=== PATIENT | male | born 1940 | race Caucasian/White ===

== ENCOUNTER 2018-01-13 10:07 | Outpatient (CLI) | payer MEDICARE ==
--- NOTE | 2018-01-13 11:18 | RAD ---
PA AND LATERAL VIEWS CHEST: Date: 01/13/18 HISTORY: Dyspnea. FINDINGS: Comparison made with exam dated 07/05/17. The heart size is enlarged. Lungs are expanded with stable chronic changes. No lobar consolidation, p neumothoraces, or pleural effusions are seen. No evidence of pulmonary edema is identified. No acute osseous abnormalities are noted. IMPRESSION: Stable exam. No acute process. POS: [facility]
== END 2018-01-13 10:08 | disposition home or self-care (01) ==
LOC: RAD 10:07
PROVIDERS: ATTEND Internal Medicine Critical Care Medicine
DX: R06.00 Dyspnea, unspecified (principal); J84.112 Idiopathic pulmonary fibrosis
CPT/HCPCS: 71046

== ENCOUNTER 2018-05-25 12:55 | Outpatient (CLI) | payer MEDICARE | END 2018-05-25 12:56 | disposition home or self-care (01) | LOC: CP 12:55 | PROVIDERS: ATTEND Internal Medicine Critical Care Medicine | DX: J84.112 Idiopathic pulmonary fibrosis (principal) | CPT/HCPCS: 71046; 94060; 94727; 94729 ==

== ENCOUNTER 2018-05-25 14:25 | Outpatient (CLI) | payer MEDICARE ==
--- NOTE | 2018-05-25 15:43 | RAD ---
RADIOGRAPH CHEST 2 VIEWS: Date: 05/25/18 Time: 2:37 p.m. HISTORY: 78-year-old male with dyspnea. COMPARISON: 01/13/18. FINDINGS: Low lung volumes and diffuse, chronic appearing interstitial infiltrates. No pleural effusion. No pne umothorax. No interval change. IMPRESSION: 1. Evidence for pulmonary fibrosis. 2. No interval change since 01/13/18. EULALIA [] POS: [facility]
== END 2018-05-25 14:26 | disposition home or self-care (01) ==
LOC: RAD 14:25
PROVIDERS: ATTEND Internal Medicine Critical Care Medicine
DX: J84.112 Idiopathic pulmonary fibrosis (principal); R06.00 Dyspnea, unspecified
CPT/HCPCS: 71046

== ENCOUNTER 2018-07-24 10:48 | Emergency (ER) | payer MEDICARE ==
[2018-07-24] MEDS ORDERED: Proparacaine 0.5% Opth 15 ML BOT ONE (11:06)
== END 2018-07-24 12:38 | disposition home or self-care (01) ==
LOC: ERS 10:48
DX: J32.9 Chronic sinusitis, unspecified (principal); H61.21 Impacted cerumen, right ear; I10 Essential (primary) hypertension; I48.91 Unspecified atrial fibrillation; E11.9 Type 2 diabetes mellitus without complications; Z79.82 Long term (current) use of aspirin; Z79.899 Other long term (current) drug therapy; Z79.84 Long term (current) use of oral hypoglycemic drugs
CPT/HCPCS: 99283

== ENCOUNTER 2018-10-09 09:05 | Outpatient (CLI) | payer MEDICARE ==
--- NOTE | 2018-10-09 11:15 | RAD ---
FRONTAL ABDOMEN AND PELVIS RADIOGRAPHS UPRIGHT AND SUPINE: 10/09/2018 HISTORY: Intermittent abdominal pain. Burning sensation. Right lower quadrant pain. COMPARISON: None. FINDINGS: The imaged lung parenchyma is markedly abnormal, with coarse, nonspecific, increased interstitial den sity. Upright imaging demonstrates free intraperitoneal air. There is significant stool overlying t he right colon. There is multilevel degenerative change seen within the lumbar spine. The bowel gas pattern appears nonobstructed. There are multiple punctate calcifications within the upper abdomen bilaterally, right greater than l eft, suggesting bilateral renal calculi, better evaluated on a 08/21/2018 CT. IMPRESSION: Interstitial disease within both lung bases. No free intraperitoneal air or evidence of bowel obstru ction. POS: [facility]
--- NOTE | 2018-10-09 11:17 | RAD ---
THREE VIEWS OF THE LEFT RIBS: DATE: 10/09/2018. COMPARISON: None. HISTORY: Lower rib pain and intercostal pain. FINDINGS: The lung parenchyma demonstrates coarse linear interstitial density with probable bronchiectatic thapa ge within the left base. There is degenerative change involving the left acromioclavicular joint. There is atherosclerotic calcification of the aortic arch and the imaged abdominal aorta. No displac ed rib fracture seen. IMPRESSION: Chronic findings as detailed above. No displaced left-sided rib fracture noted. If symptoms persist , CT may be beneficial. POS: [facility]
--- NOTE | 2018-10-09 11:21 | RAD ---
THREE VIEWS OF THE RIGHT RIBS: DATE: 10/09/2018. COMPARISON: None. HISTORY: Lower rib pain, intercostal pain. FINDINGS: There is atherosclerotic calcification of the aortic arch. There is increased linear interstitial de nsity within the perihilar regions and lung bases. There is degenerative change involving the right acromioclavicular joint. Three-view examination of right ribs demonstrates no acute osseous abnormality. IMPRESSION: Chronic findings as detailed above. No acute osseous abnormality. If symptoms persist, CT may be be neficial. IMPRESSION: No acute osseous abnormality. POS: [facility]
--- NOTE | 2018-10-09 11:36 | RAD ---
FRONTAL AND LATERAL IMAGING OF THE THORACOLUMBAR JUNCTION: 10/09/2018 HISTORY: Pain. FINDINGS: Frontal and lateral radiographs of the spine, centered at the thoracolumbar junction, are provided. The upper thoracic spine and the lower lumbar spine are not fully imaged on this exam. The imaged ve rtebral bodies demonstrate no acute fracture. No significant anterolisthesis or retrolisthesis. There is prominent degenerative change noted at L2-L3 with disk space narrowing, degenerative endplat e change, and anterior osteophyte formation. IMPRESSION: Incompletely assessed lumbar spine degenerative change. No acute osseous abnormality. Upper thoraci c spine and lower lumbar spine not imaged on this examination. POS: [facility]
== END 2018-10-09 09:06 | disposition home or self-care (01) ==
LOC: BICRAD 09:05
PROVIDERS: ATTEND Internal Medicine
DX: R10.84 Generalized abdominal pain (principal); R07.82 Intercostal pain; M54.9 Dorsalgia, unspecified; M19.012 Primary osteoarthritis, left shoulder; I70.0 Atherosclerosis of aorta; J84.9 Interstitial pulmonary disease, unspecified
CPT/HCPCS: 72080; 74019

== ENCOUNTER 2018-10-09 10:39 | Outpatient (CLI) | payer MEDICARE ==
--- NOTE | 2018-10-09 14:55 | ULT ---
ABDOMINAL ULTRASOUND: 10/09/2018 HISTORY: Abdominal pulling sensation. Abdominal discomfort. Epigastric and lower abdominal pain with constip ation. COMPARISON: None. TECHNIQUE: Multiplanar -scale sonographic imaging of the abdomen obtained. FINDINGS: The imaged aorta and IVC appear grossly unremarkable but are poorly assessed secondary to body habitu s and bowel gas. The pancreas is poorly assessed on this exam as well. The hepatic parenchyma is he terogeneous and echogenic, suggesting possible hepatocellular disease, such as steatosis. There is a granuloma in the left lobe of the liver. No intrahepatic biliary dilatation is seen. The stock handler floorperson reports a negative Witt sign. There is questionable small volume gallbladder sludg e. No gallstones, pericholecystic fluid, or gallbladder wall thickening. The common bile duct measures 6-7 mm, upper limits of normal. Correlation with LFTs suggested. The right kidney measures 11.9 cm in craniocaudal dimension, and the left kidney measures 13 cm in cr aniocaudal dimension. No renal mass or hydronephrosis is noted on either side. Possible renal calcu wendy noted on the left, measuring up to 9 mm. The spleen measures up to 8.6 cm, within normal limits. IMPRESSION: 1. Technically limited examination, demonstrating no evidence or cholelithiasis or cholecystitis. P robable gallbladder sludge. Common bile duct is at the upper limits of normal in size. 2. Hepatic parenchyma is heterogeneous and echogenic, which may signify steatosis. 3. Question left renal calculus. POS: [facility]
== END 2018-10-09 10:40 | disposition home or self-care (01) ==
LOC: SCSULT 10:39
PROVIDERS: ATTEND Internal Medicine
DX: R10.84 Generalized abdominal pain (principal); R93.2 Abnormal findings on diagnostic imaging of liver and biliary tract
CPT/HCPCS: 36415; 72080; 74019; 76700; 80053; 81001; 82043; 82150; 83690; 85025; 87086

== ENCOUNTER 2018-11-24 14:05 | Outpatient (CLI) | payer MEDICARE ==
--- NOTE | 2018-11-24 15:08 | RAD ---
CHEST TWO VIEWS: HISTORY: Dyspnea. COMPARISON: 05/25/2018 FINDINGS: Atherosclerosis of the aorta. Persistent cardiomegaly. Diffuse interstitial and alveolar opacities of the lung parenchyma. The lungs are hyperinflated. No pneumothorax or osseous abnormalities. IMPRESSION: Chronic changes in the lung parenchyma are suspected. Superimposed infiltrate cannot be excluded. POS: [facility]
== END 2018-11-24 14:06 | disposition home or self-care (01) ==
LOC: RAD 14:05
PROVIDERS: ATTEND Internal Medicine Critical Care Medicine
DX: R06.00 Dyspnea, unspecified (principal)
CPT/HCPCS: 71046

== ENCOUNTER 2018-12-08 07:01 | Day surgery (SDC) | payer MEDICARE ==
[2018-12-07 14:26] VITALS: BMI 25.9
[2018-12-08 08:17] LABS: #Basophils 0.1 thou/uL (0.0-0.2); #Eosinphils 0.2 thou/uL (0.0-0.7); #Lymphocytes 1.4 thou/uL (1.20-3.40); #Monocytes 0.9 thou/uL (0.11-0.59); #Neutrophils 9.8 thou/uL (1.40-6.50); %Basophils 0.4 % (0.0-1.0); %Eosinophils 1.9 % (0.0-10.0); %Lymphocytes 11.3 % (21.0-51.0); %Neutrophils 79.4 % (42.0-75.0); Hemoglobin 15.9 g/dL (14.0-18.0); Mean Corpuscular HGB CONC 31.7 g/dL (32.0-36.0); Mean Corpuscular Hemoglobin 30.4 pg (27.0-31.0); Mean Corpuscular Volume 95.8 fL (78.0-98.0); Mean Platelet Volume 8.6 fL (7.4-10.4); Platelet Count 120 thou/uL (130-400); Red Blood Cell (RBC) Count 5.23 mill/uL (4.70-6.10); White Blood Cell (WBC) Count 12.3 thou/uL (4.8-10.8)
[2018-12-08 08:24] LABS: INR-International Normal Ratio 1.4
[2018-12-08 08:36] LABS: Anion Gap 14 mmol/L (10-20); BUN (Urea Nitrogen) 15 mg/dL (8.4-25.7); Calc. Creatinine Clearance 86 mL/min (70-130); Calcium 8.9 mg/dL (7.8-10.44); Carbon Dioxide 25 mmol/L (23-31); Chloride 105 mmol/L (98-107); Estimated GFR-MDRD Greater than 90; Glucose 169 mg/dL (83-110); Potassium 3.9 mmol/L (3.5-5.1); Sodium 140 mmol/L (136-145)
[2018-12-08] MEDS ORDERED: KETAMINE 100 MG/ML (5ML VIAL) ONE (08:41)
[2018-12-08] MEDS ORDERED: PROPOFOL 40 ML ONE (08:42)
[2018-12-08] MEDS ORDERED: PROPOFOL 200 MG/20 ML VIAL ONE (16:36)
--- NOTE | 2018-12-08 16:53 | ECHO ---
TRANSESOPHAGEAL ECHOCARDIOGRAM: DATE OF PROCEDURE: 12/08/18 INDICATION: 78-year-old gentleman with paroxysmal atrial fibrillation and Watchman device. DESCRIPTION OF PROCEDURE: The patient was taken to the PACU. The patient was sedated by anesthesiology. A transesophageal probe was placed in the distal esophagus and stomach. Echocardiographic images were obtained. The transesophageal probe was removed. FINDINGS: 1. Normal left ventricular systolic function. 2. Biatrial enlargement. 3. The right ventricle is enlarged. 4. Aneurysm of the interatrial septum. 5. Moderate tricuspid regurgitation. 6. Mild mitral regurgitation. 7. Mild aortic regurgitation. 8. Watchman device is well positioned with a trivial less than 1.0 mm leak noted around the device, with a large amount of clot behind the device. 9. Atherosclerotic debris in the descending aorta. IMPRESSION: Watchman device well positioned with a trivial leak and a large amount of clot behind the device.
--- NOTE | 2018-12-08 21:15 | EKG ---
Test Reason : PREOP Blood Pressure : / mmHG Vent. Rate : 072 BPM Atrial Rate : 072 BPM P-R Int : 208 ms QRS Dur : 084 ms QT Int : 390 ms P-R-T Axes : 056 106 058 degrees QTc Int : 427 ms Normal sinus rhythm with sinus arrhythmia Rightward axis Borderline ECG When compared with ECG of 04-JUN-2017 00:33, Sinus rhythm has replaced Junctional rhythm Vent. rate has decreased BY 47 BPM QRS axis Shifted right Confirmed by Humberto YORK ([id number]) on 12/08/2018 9:15:15 PM Referred By: RAEANN Confirmed By:Humberto YORK
== END 2018-12-08 11:00 | disposition home or self-care (01) ==
LOC: CCL 07:01
PROVIDERS: ATTEND Internal Medicine Cardiovascular Disease
PROC: B24BZZ4 Ultrasonography of Heart with Aorta, Transesophageal (ICD-10-PCS; principal; 2018-12-08)
DX: I48.0 Paroxysmal atrial fibrillation (principal); I08.3 Combined rheumatic disorders of mitral, aortic and tricuspid valves; I70.0 Atherosclerosis of aorta; I48.1 Persistent atrial fibrillation; I10 Essential (primary) hypertension; I25.10 Atherosclerotic heart disease of native coronary artery without angina pectoris; E11.9 Type 2 diabetes mellitus without complications; Z79.52 Long term (current) use of systemic steroids; Z79.82 Long term (current) use of aspirin; Z79.01 Long term (current) use of anticoagulants; Z79.84 Long term (current) use of oral hypoglycemic drugs; Z79.899 Other long term (current) drug therapy; Z91.041 Radiographic dye allergy status; Z95.818 Presence of other cardiac implants and grafts
CPT/HCPCS: 80048; 85025; 85610; 85730; 93005; 93010; 93312; J2704

== ENCOUNTER 2019-03-26 10:03 | Day surgery (SDC) | payer MEDICARE ==
[2019-03-23 16:19] VITALS: BMI 26.1
[2019-03-26 10:38] LABS: #Eosinphils 0.1 thou/uL (0.0-0.7); #Lymphocytes 1.5 thou/uL (1.20-3.40); #Monocytes 0.7 thou/uL (0.11-0.59); #Neutrophils 12.2 thou/uL (1.40-6.50); %Basophils 0.1 % (0.0-1.0); %Eosinophils 0.5 % (0.0-10.0); %Lymphocytes 10.1 % (21.0-51.0); %Monocytes 4.9 % (0.0-10.0); %Neutrophils 84.4 % (42.0-75.0); Mean Corpuscular HGB CONC 32.5 g/dL (32.0-36.0); Mean Corpuscular Hemoglobin 31.5 pg (27.0-31.0); Mean Corpuscular Volume 96.9 fL (78.0-98.0); Mean Platelet Volume 8.9 fL (7.4-10.4); Platelet Count 151 thou/uL (130-400); RBC Distribution Width 12.9 % (11.5-14.5); Red Blood Cell (RBC) Count 6.05 mill/uL (4.70-6.10); White Blood Cell (WBC) Count 14.5 thou/uL (4.8-10.8)
[2019-03-26 10:42] LABS: INR-International Normal Ratio 0.9; Prothrombin Time 12.2 SEC (12.0-14.7)
[2019-03-26 10:43] LABS: PTT 19.7 SEC (22.9-36.1)
[2019-03-26 11:18] LABS: Anion Gap 15 mmol/L (10-20); BUN (Urea Nitrogen) 22 mg/dL (8.4-25.7); Calc. Creatinine Clearance 62 mL/min (70-130); Calcium 10.4 mg/dL (7.8-10.44); Carbon Dioxide 26 mmol/L (23-31); Chloride 100 mmol/L (98-107); Estimated GFR-MDRD 67; Glucose 359 mg/dL (83-110); Potassium 4.3 mmol/L (3.5-5.1); Sodium 137 mmol/L (136-145)
[2019-03-26] MEDS ORDERED: PROPOFOL 40 ML ONE (13:18)
--- NOTE | 2019-03-27 09:51 | ECHO ---
CARDIOLOGY PROCEDURE NOTE: Date: 03/26/19 PROCEDURE: Transesophageal echocardiogram. REASON FOR PROCEDURE: Mr. Nicholas is a 79-year-old gentleman with prior ablation and redo ablation, including isolation of left atrial appendage. Comorbidities include idiopathic pulmonary hypertension/fibrosis, Type 2 diab etes, hypertension. Status post Watchman device placement November 2018 with residual leak on 6 weeks post REBECCA. Is here for re-evaluation. Is on aspirin and Plavix. PROCEDURE DETAILS: The patient received propofol by anesthesia specialist. After adequate level of sedation achieved, th e standard transesophageal echocardiogram probe was placed into the esophagus without difficulty. The patient tolerated the procedure well. No complications noted. RESULTS: Left atrium normal in size, 3.6 cm in horizontal diameter. Left atrial appendage is well visualized a nd adequately seated Watchman device is in place. Behind the device, significant clot burden is seen, but still some echo lucency is observed. Different angle interrogation were able to tell us of about a 2-4 mm leak is still persisting and maintaining flow to the area behind the device at site of left atrial appendage. 4/4 pulmonary veins were well visualized, without stenosis. Mitral valve has trace mitral regurgitation only. Left ventricular systolic function preserved. LV size normal. Intra-atria l and intraventricular septum is free of defect. Trivial pericardial effusion seen on the right-sided chambers, mildly enlarged and RV systolic function slightly reduced. No significant tricuspid regurg itation seen. Pulmonic valve and aortic valve nonregurgitant or stenosed. Visualized portions of asce nding and descending aorta without aneurysm or dissection. Descending aorta has mild atheroma noted. No dissection or aneurysm seen. CONCLUSION: 1. Adequately seated Watchman device, but with residual 2-4 mm leak present in the annular aspect of the device causing some echo lucency in the left atrial appendage. 2. Normal left atrial size. 3. No significant valvular heart disease. 4. Normal left ventricular systolic function. 5. Mild RV dilation and RV systolic dysfunction noted. PLAN: Continue aspirin and Plavix. Will evaluate with Dr. Vidal regarding need for coiling.
== END 2019-03-26 15:03 | disposition home or self-care (01) ==
LOC: CCL 10:03
PROVIDERS: ATTEND Internal Medicine Cardiovascular Disease
PROC: B245ZZ4 Ultrasonography of Left Heart, Transesophageal (ICD-10-PCS; principal; 2019-03-26)
DX: I48.1 Persistent atrial fibrillation (principal); I25.10 Atherosclerotic heart disease of native coronary artery without angina pectoris; E11.9 Type 2 diabetes mellitus without complications; I10 Essential (primary) hypertension; E78.5 Hyperlipidemia, unspecified; J84.112 Idiopathic pulmonary fibrosis; Z99.89 Dependence on other enabling machines and devices; Z95.818 Presence of other cardiac implants and grafts; Z79.01 Long term (current) use of anticoagulants; Z79.82 Long term (current) use of aspirin; Z79.84 Long term (current) use of oral hypoglycemic drugs; Z79.899 Other long term (current) drug therapy
CPT/HCPCS: 80048; 85025; 85610; 85730; 93005; 93010; 93312; J2704

== ENCOUNTER 2019-04-24 10:24 | Outpatient (CLI) | payer MEDICARE ==
--- NOTE | 2019-04-24 10:58 | RAD ---
XR Hip Rt 2-3 View History: [Unspecified osteoarthritis] Comparison: Radiograph 2016 Findings: Mild narrowing right hip joint. Small acetabular osteophyte formation. Obturator ring is intact. Moderate vascular calcifications. No acute fracture or malalignment. Mild enthesopathy at the greater trochanter. Impression: Moderate degenerative changes. No acute abnormality.
--- NOTE | 2019-04-24 10:59 | RAD ---
XR Hip Lt 2-3 View History: [Unspecified osteoarthritis] Comparison: None Findings: Mild degenerative narrowing left hip. Moderate acetabular osteophyte formation. Moderate va scular calcifications. Mild enthesopathy changes greater trochanter. Obturator ring is intact. Small phleboliths in the pelvis. Impression: Moderate degenerative change.
--- NOTE | 2019-04-24 12:34 | RAD ---
LUMBAR SPINE TWO VIEWS: 04/24/19 HISTORY: Unspecified osteoarthritis. COMPARISON: 08/08/14. FINDINGS: Extensive honeycombing and interstitial changes in the lower lung zones, nonspecific but possibly rel ated to extensive chronic interstitial lung disease. Evidence for bilateral renal calculi. Status po st laminectomy changes primarily at L3. Severe generalized disc osteophytosis with marked narrowing a t L2-L3 with some retrolisthesis of L3 on L4 and L4 on L5. Marked worsening of disc space narrowing a nd disc osteophytosis at L2-L3 compared to a prior 08/08/14 study. IMPRESSION: Status post laminectomy. Severe disc osteophytosis showing marked worsening at L2-L3 from old study. Other findings as above. POS: [facility]
== END 2019-04-24 10:25 | disposition home or self-care (01) ==
LOC: BICRAD 10:24
PROVIDERS: ATTEND Internal Medicine
DX: M47.816 Spondylosis without myelopathy or radiculopathy, lumbar region (principal); M16.0 Bilateral primary osteoarthritis of hip; M43.16 Spondylolisthesis, lumbar region; M48.061 Spinal stenosis, lumbar region without neurogenic claudication; N20.0 Calculus of kidney; M25.78 Osteophyte, vertebrae; Z98.890 Other specified postprocedural states
CPT/HCPCS: 72100

== ENCOUNTER 2019-07-09 06:03 | Day surgery (SDC) | payer MEDICARE ==
[2019-07-06 12:21] VITALS: BMI 26.6
[2019-07-09 07:02] LABS: #Eosinphils 0.1 thou/uL (0.0-0.7); #Lymphocytes 1.7 thou/uL (1.20-3.40); #Monocytes 1.1 thou/uL (0.11-0.59); #Neutrophils 11.2 thou/uL (1.40-6.50); %Basophils 0.3 % (0.0-1.0); %Eosinophils 0.9 % (0.0-10.0); %Lymphocytes 12.1 % (21.0-51.0); %Monocytes 7.7 % (0.0-10.0); Hemoglobin 15.1 g/dL (14.0-18.0); Mean Corpuscular HGB CONC 32.7 g/dL (32.0-36.0); Mean Corpuscular Hemoglobin 32.6 pg (27.0-31.0); Mean Corpuscular Volume 99.6 fL (78.0-98.0); Mean Platelet Volume 8.4 fL (7.4-10.4); Platelet Count 155 thou/uL (130-400); RBC Distribution Width 12.4 % (11.5-14.5); Red Blood Cell (RBC) Count 4.65 mill/uL (4.70-6.10); White Blood Cell (WBC) Count 14.2 thou/uL (4.8-10.8)
[2019-07-09 07:03] LABS: PTT 23.2 SEC (22.9-36.1); Prothrombin Time 12.9 SEC (12.0-14.7)
[2019-07-09 07:14] LABS: Anion Gap 12 mmol/L (10-20); BUN (Urea Nitrogen) 12 mg/dL (8.4-25.7); Calc. Creatinine Clearance 84 mL/min (70-130); Calcium 9.2 mg/dL (7.8-10.44); Carbon Dioxide 27 mmol/L (23-31); Chloride 102 mmol/L (98-107); Estimated GFR-MDRD Greater than 90; Glucose 85 mg/dL (83-110); Potassium 3.5 mmol/L (3.5-5.1); Sodium 137 mmol/L (136-145)
[2019-07-09] MEDS ORDERED: PROPOFOL 20 ML ONE (07:20)
--- NOTE | 2019-07-09 14:10 | ECHO ---
CARDIOLOGY PROCEDURE NOTE: Date: 07/09/19 PROCEDURE: Transesophageal echocardiogram. REFERRING PHYSICIAN: Dr. Tati Moulton and Dr. Edwin Vidal. REASON FOR PROCEDURE: Mr. Nicholas is a pleasant 79-year-old male with prior history of left atrial ablation for persistent atrial fibrillation. He underwent a Watchman procedure in September 2018 and a coiling procedure in 2018. He is here for a 3 month postprocedure check, still on aspirin and Plavix. PROCEDURE: The patient received propofol by an anesthesia specialist. After an adequate level of sedation was ac hieved, a standard transesophageal echocardiogram probe was passed into the esophagus without difficu lty. The patient tolerated the procedure well. No complications noted. RESULTS: Left atrium is mildly enlarged. Left atrial appendage is well visualized with appropriately seated Wa tchman device in place. Color flow interrogation, though, reveals a flow about 0.3-0.4 cm in diameter . There is also suboptimal opacification noted behind the left atrial appendage occluder device. 4 of 4 pulmonary veins were well visualized. Interatrial septum free of defect. Mitral valve, aortic valv e, and tricuspid valve have mild regurgitation. Aortic valve identified with mild sclerosis. Left rory tricular systolic function preserved. No pericardial effusion noted. Right-sided chambers normal in s ize. Visualized portions of ascending and descending aorta without aneurysm or dissection. Descending aorta with adherent atheroma noted. CONCLUSION: Residual leak causing suboptimal opacification behind the Watchman device. PLAN: Continue aspirin and Plavix, and consider recoiling. Will discuss with Dr. Vidal.
== END 2019-07-09 09:45 | disposition home or self-care (01) ==
LOC: CCL 06:03
PROVIDERS: ATTEND Internal Medicine Cardiovascular Disease
PROC: B246ZZ4 Ultrasonography of Right and Left Heart, Transesophageal (ICD-10-PCS; principal; 2019-07-09)
DX: I48.1 Persistent atrial fibrillation (principal); I08.3 Combined rheumatic disorders of mitral, aortic and tricuspid valves; I70.0 Atherosclerosis of aorta; I25.10 Atherosclerotic heart disease of native coronary artery without angina pectoris; E11.9 Type 2 diabetes mellitus without complications; I10 Essential (primary) hypertension; E78.5 Hyperlipidemia, unspecified; J84.112 Idiopathic pulmonary fibrosis; Z99.81 Dependence on supplemental oxygen; Z91.041 Radiographic dye allergy status; Z79.84 Long term (current) use of oral hypoglycemic drugs; Z79.02 Long term (current) use of antithrombotics/antiplatelets; Z79.82 Long term (current) use of aspirin; Z79.899 Other long term (current) drug therapy
CPT/HCPCS: 36415; 80048; 85025; 85610; 85730; 93005; 93010; 93312; J2704

== ENCOUNTER 2019-10-29 08:37 | Day surgery (SDC) | payer MEDICARE ==
[2019-10-26 11:25] VITALS: BMI 25.4
[2019-10-29 09:13] LABS: #Eosinphils 0.2 thou/uL (0.0-0.7); #Lymphocytes 1.7 thou/uL (1.20-3.40); #Monocytes 1.2 thou/uL (0.11-0.59); #Neutrophils 9.9 thou/uL (1.40-6.50); %Eosinophils 1.3 % (0.0-10.0); %Lymphocytes 13.3 % (21.0-51.0); %Monocytes 8.9 % (0.0-10.0); %Neutrophils 76.4 % (42.0-75.0); Hemoglobin 15.7 g/dL (14.0-18.0); Mean Corpuscular HGB CONC 32.9 g/dL (32.0-36.0); Mean Corpuscular Hemoglobin 32.8 pg (27.0-31.0); Mean Corpuscular Volume 99.6 fL (78.0-98.0); Mean Platelet Volume 8.6 fL (7.4-10.4); Platelet Count 152 thou/uL (130-400); RBC Distribution Width 12.6 % (11.5-14.5); Red Blood Cell (RBC) Count 4.79 mill/uL (4.70-6.10)
[2019-10-29 09:16] LABS: INR-International Normal Ratio 0.9; Prothrombin Time 12.2 SEC (12.0-14.7)
[2019-10-29 09:17] LABS: PTT 22.6 SEC (22.9-36.1)
[2019-10-29 09:27] LABS: Anion Gap 12 mmol/L (10-20); BUN (Urea Nitrogen) 13 mg/dL (8.4-25.7); Calc. Creatinine Clearance 78 mL/min (70-130); Calcium 8.7 mg/dL (7.8-10.44); Carbon Dioxide 29 mmol/L (23-31); Chloride 101 mmol/L (98-107); Estimated GFR-MDRD Greater than 90; Glucose 212 mg/dL (83-110); Potassium 3.8 mmol/L (3.5-5.1); Sodium 138 mmol/L (136-145)
[2019-10-29] MEDS ORDERED: PHENYLEPHRINE-NS 100 MCG/ML 10 ML SYRINGE ONE (10:24)
[2019-10-29] MEDS ORDERED: PROPOFOL 200 MG/20 ML VIAL ONE (10:24)
[2019-10-29] MEDS ORDERED: Esmolol 100 MG/10 ML VIAL ONE (10:24)
[2019-10-29] MEDS ORDERED: PROPOFOL 40 ML ONE (11:08)
--- NOTE | 2019-10-30 20:08 | ECHO ---
DATE OF SERVICE: 10/29/19 REFERRING PHYSICIAN: Dr. Moulton REASON FOR PROCEDURE: The patient is a 79-year-old man with history of multiple ablations including isolation of left atria l appendage. He has had a Watchman device placed in September 2018; however, leak adjacent to the li ce prompted recoiling procedures, most recently in 04/18/19 and then again in July 2019. He is he re for REBECCA to check for adequate sealing of left atrial appendage. PROCEDURE: The patient received Propofol for deep sedation by Anesthesia specialist. After adequate level of sedation achieved, a standard transesophageal echocardiogram probe was passed into the esop hagus without difficulty. Patient tolerated the procedure well, no complications noted. RESULTS: Left atrium is upper normal in size about 3 cm in horizontal diameter. The left atrial appendage wel l visualized and adequately seated Watchman device in place. Still some residual echolucency noted behind the Watchman device. On color flow interrogation, there is significant flow seen by the annula r side of the device. The interatrial septum shows residual leak at the transseptal side. Four out o f four pulmonary veins were seen. Mild mitral regurgitation. Mild tricuspid regurgitation. The aort ic valve has trace to mild regurgitation. The pulmonary valve appears to be normal. Aortic valve and other valves are not stenosed. Three leaflet aortic valve is noted. Left ventricular systolic functio n is preserved. Right sided chambers are nondilated. No pericardial effusion seen. CONCLUSION: 1. Adequately seated but still not completely sealed Watchman device is noted. 2. Normal left ventricular systolic function. 3. Mild mitral, aortic and tricuspid regurgitation. PLAN: Continue current anticoagulation regimen and we will send CD to Dr. Vidal. Patient is on aspirin and Plavix at this time.
--- NOTE | 2019-11-12 16:35 | EKG ---
Test Reason : PREOP Blood Pressure : / mmHG Vent. Rate : 082 BPM Atrial Rate : 082 BPM P-R Int : 204 ms QRS Dur : 086 ms QT Int : 388 ms P-R-T Axes : 050 134 006 degrees QTc Int : 453 ms Normal sinus rhythm Right axis deviation Right ventricular hypertrophy with repolarization abnormality Abnormal ECG When compared with ECG of 09-JUL-2019 07:21, Nonspecific T wave abnormality, improved in Inferior leads Confirmed by JEANNIE NEWBY M.D. ([id number]) on 11/12/2019 4:34:27 PM Referred By: [facility] Confirmed By:JEANNIE NEWBY M.D.
== END 2019-10-29 15:40 | disposition home or self-care (01) ==
LOC: CCL 08:37
PROVIDERS: ATTEND Internal Medicine Cardiovascular Disease
PROC: B24BZZ4 Ultrasonography of Heart with Aorta, Transesophageal (ICD-10-PCS; principal; 2019-10-29)
DX: I48.19 Other persistent atrial fibrillation (principal); I08.3 Combined rheumatic disorders of mitral, aortic and tricuspid valves; I25.10 Atherosclerotic heart disease of native coronary artery without angina pectoris; E11.9 Type 2 diabetes mellitus without complications; E78.5 Hyperlipidemia, unspecified; I10 Essential (primary) hypertension; J84.112 Idiopathic pulmonary fibrosis; Z79.02 Long term (current) use of antithrombotics/antiplatelets; Z79.52 Long term (current) use of systemic steroids; Z79.82 Long term (current) use of aspirin; Z79.84 Long term (current) use of oral hypoglycemic drugs; Z79.899 Other long term (current) drug therapy; Z91.041 Radiographic dye allergy status; Z99.81 Dependence on supplemental oxygen; Z95.818 Presence of other cardiac implants and grafts; Z98.890 Other specified postprocedural states
CPT/HCPCS: 36415; 80048; 85025; 85610; 85730; 93005; 93010; 93312; J2704

== ENCOUNTER 2020-01-08 10:32 | Outpatient (CLI) | payer MEDICARE ==
--- NOTE | 2020-01-08 12:41 | RAD ---
PA AND LATERAL CHEST: HISTORY: Dyspnea. COMPARISON: 06/10/2017 and 11/24/2018 exams. FINDINGS: Heart size is enlarged. Chronic-appearing lung changes are seen. I do not see an obvious change sin ce the previous 11/24/2018 study. IMPRESSION: Severe chronic interstitial fibrotic lung change. POS: [facility]
== END 2020-01-08 10:33 | disposition home or self-care (01) ==
LOC: BICRAD 10:32
PROVIDERS: ATTEND Internal Medicine Critical Care Medicine
DX: R06.00 Dyspnea, unspecified (principal)
CPT/HCPCS: 71046

== ENCOUNTER 2020-01-23 07:06 | Day surgery (SDC) | payer MEDICARE ==
[2020-01-22 09:06] VITALS: BMI 25.5
[2020-01-23 08:06] LABS: #Eosinphils 0.2 thou/uL (0.0-0.7); #Lymphocytes 1.5 thou/uL (1.20-3.40); #Neutrophils 11.3 thou/uL (1.40-6.50); %Basophils 0.2 % (0.0-1.0); %Eosinophils 1.2 % (0.0-10.0); %Lymphocytes 10.7 % (21.0-51.0); %Monocytes 7.3 % (0.0-10.0); %Neutrophils 80.7 % (42.0-75.0); Hemoglobin 15.9 g/dL (14.0-18.0); Mean Corpuscular Hemoglobin 32.5 pg (27.0-31.0); Mean Corpuscular Volume 98.4 fL (78.0-98.0); Mean Platelet Volume 8.5 fL (7.4-10.4); Platelet Count 154 thou/uL (130-400); RBC Distribution Width 13.2 % (11.5-14.5)
[2020-01-23 08:18] LABS: INR-International Normal Ratio 0.9; Prothrombin Time 12.3 SEC (12.0-14.7)
[2020-01-23 08:19] LABS: PTT 22.8 SEC (22.9-36.1)
[2020-01-23 08:36] LABS: Anion Gap 13 mmol/L (10-20); BUN (Urea Nitrogen) 18 mg/dL (8.4-25.7); Calc. Creatinine Clearance 82 mL/min (70-130); Calcium 8.8 mg/dL (7.8-10.44); Carbon Dioxide 27 mmol/L (23-31); Chloride 104 mmol/L (98-107); Estimated GFR-MDRD Greater than 90; Glucose 188 mg/dL (83-110); Potassium 3.8 mmol/L (3.5-5.1); Sodium 140 mmol/L (136-145)
[2020-01-23] MEDS ORDERED: PROPOFOL 200 MG/20 ML VIAL ONE (10:10)
--- NOTE | 2020-01-24 08:29 | EKG ---
Test Reason : PREOP Blood Pressure : / mmHG Vent. Rate : 077 BPM Atrial Rate : 077 BPM P-R Int : 214 ms QRS Dur : 086 ms QT Int : 390 ms P-R-T Axes : 045 136 004 degrees QTc Int : 441 ms Sinus rhythm with 1st degree A-V block Right axis deviation Right ventricular hypertrophy Abnormal ECG When compared with ECG of 29-OCT-2019 08:53, No significant change was found Confirmed by DR. Margret WHITFIELD ([id number]) on 01/24/2020 8:28:42 AM Referred By: [facility] Confirmed By:DR. Margret WHITFIELD
--- NOTE | 2020-01-24 16:53 | ECHO ---
DATE OF PROCEDURE: 01/23/20 REFERRING PHYSICIAN: Dr. Edwin Vidal; Dr. Marcelo Moulton REASON FOR PROCEDURE: The patient is an 80-year-old gentleman with history of persistent atrial fibrillation with ablation and isolation of the left atrial appendage. He also underwent a Watchman device placement in September 2019 but leak prompted coiling in April 10, 2019 and also in November 2019. He is here for repeat REBECCA t o re-evaluate Watchman patency. PROCEDURE: The patient received Propofol by Anesthesia specialist. After adequate level of sedation achieved, a standard transesophageal echocardiogram probe was passed into the esophagus without diff iculty. Patient tolerated the procedure well, no complications noted. RESULTS: Left atrium is mildly enlarged about 4 cm in horizontal diameter. The left atrial appendage well vis ualized with adequately seated Watchman device in place. Posterior to the device in the left atrial a ppendage there is still suboptimal opacification seen suggestive of flow. Also color flow Doppler rev eals trace flow possibly through the annular surface of the device leaking to the appendage behind th e Watchman device. I cannot rule out also flow through the mesh work either. The interatrial septum has residual leak at the site of the transseptal puncture which is very restri ctive. Four out of four pulmonary veins are well visualized without stenosis. The mitral valve has t race regurgitation. The left ventricular systolic function appears to be normal. No pericardial effu roxy seen of significance. The right sided chamber is nondilated. Trace tricuspid regurgitation seen only. The aortic valve has three leaflets with trace regurgitation. No pulmonary regurgitation noted . The visualized portion of ascending and descending aorta without aneurysm or dissection. Adherent a theroma seen throughout the descending aorta. CONCLUSION: 1. Adequately seated but suboptimal sealed Watchman device in place. 2. Mild left atrial enlargement. 3. Normal left ventricular systolic function. 4. Trace mitral and aortic regurgitation only. 5. Residual restrictive flow through the interatrial septum at the site of transseptal puncture is s till visualized and of note not of significance. PLAN: We will send CD for review to [facility]. For now continue Plavix and we will follow up with the patient as an outpatient as well.
== END 2020-01-23 12:11 | disposition home or self-care (01) ==
LOC: CCL 07:06
PROVIDERS: ATTEND Internal Medicine Cardiovascular Disease
PROC: B24BZZ4 Ultrasonography of Heart with Aorta, Transesophageal (ICD-10-PCS; principal; 2020-01-23)
DX: I48.19 Other persistent atrial fibrillation (principal); I08.0 Rheumatic disorders of both mitral and aortic valves; Z91.041 Radiographic dye allergy status
CPT/HCPCS: 80048; 85025; 85610; 85730; 93005; 93010; 93312; J2704

== ENCOUNTER 2020-03-17 15:21 | Outpatient (CLI) | payer MEDICARE ==
--- NOTE | 2020-03-17 16:37 | RAD ---
THREE VIEWS LEFT HAND: Date: 03-17-2020 Provided Clinical History: Cellulitis FINDINGS: No evidence for fracture or other acute osseous abnormality. Alignment appears anatomic. Joint spaces appear preserved. Vascular calcifications are seen. No evidence for soft tissue gas. IMPRESSION: No evidence for an acute osseous abnormality. POS: [facility]
--- NOTE | 2020-03-17 16:38 | RAD ---
TWO VIEWS LEFT FOREARM: Date: 03-17-2020 Provided Clinical History: Cellulitis. FINDINGS: No evidence for fracture or other acute osseous abnormality. Alignment appears anatomic. Joint spaces appear preserved. Vascular calcification is noted. There is no evidence for soft tissue gas. IMPRESSION: No evidence for an acute osseous abnormality. POS: [facility]
--- NOTE | 2020-03-17 16:58 | RAD ---
LEFT ELBOW RADIOGRAPHS FOUR VIEWS: Date: 03-17-2020 Provided Clinical History: Cellulitis. FINDINGS: No evidence for fracture or other acute osseous abnormality. Alignment appears anatomic. Joint spaces appear preserved. No evidence for significant elbow joint capsular distention. Prominence of the sof t tissues at the posterior aspect of the elbow. No evidence for soft tissue gas. IMPRESSION: No evidence for an acute osseous abnormality. POS: [facility]
== END 2020-03-17 15:22 | disposition home or self-care (01) ==
LOC: BICRAD 15:21
PROVIDERS: ATTEND Internal Medicine
DX: L03.114 Cellulitis of left upper limb (principal)

== ENCOUNTER 2020-12-24 22:22 | Inpatient (IN) | payer MEDICARE ==
[2020-12-24 22:59] LABS: Hemoglobin 19.1 g/dL (14.0-18.0); Mean Corpuscular HGB CONC 30.4 g/dL (32.0-36.0); Mean Corpuscular Hemoglobin 31.2 pg (27.0-31.0); Mean Platelet Volume 10.6 fL (7.4-10.4); Platelet Count 78 thou/uL (130-400); RBC Distribution Width 15.3 % (11.5-14.5); Red Blood Cell (RBC) Count 6.11 mill/uL (4.70-6.10); White Blood Cell (WBC) Count 13.4 thou/uL (4.8-10.8)
[2020-12-24 23:10] LABS: #Lymphocytes 1.3 thou/uL (1.20-3.40); #Monocytes 0.7 thou/uL (0.11-0.59); #Neutrophils 11.3 thou/uL (1.40-6.50); %Basophils 0.3 % (0.0-1.0); %Eosinophils 0.2 % (0.0-10.0); %Lymphocytes 9.9 % (21.0-51.0); %Monocytes 4.9 % (0.0-10.0); %Neutrophils 84.6 % (42.0-75.0); Platelet Morphology Comment Appears Decreased
[2020-12-24 23:13] LABS: ALT (SGPT) 67 U/L (8-55); AST (SGOT) 65 U/L (5-34); Albumin 3.9 g/dL (3.4-4.8); Alkaline Phosphatase 324 U/L (40-110); Anion Gap 22 mmol/L (10-20); BUN (Urea Nitrogen) 32 mg/dL (8.4-25.7); Bilirubin, Total 1.6 mg/dL (0.2-1.2); Calc. Creatinine Clearance 0 mL/min (70-130); Carbon Dioxide 22 mmol/L (23-31); Chloride 91 mmol/L (98-107); Globulin 3.2 g/dL (2.4-3.5); Glucose 394 mg/dL (83-110); Potassium 5.2 mmol/L (3.5-5.1); Protein, Total 7.1 g/dL (5.8-8.1); Sodium 130 mmol/L (136-145)
[2020-12-24 23:36] LABS: CKMB 2.9 ng/mL (0-6.6)
--- NOTE | 2020-12-25 00:06 | CT ---
CT lumbar spine without contrast: HISTORY: Trauma. Back pain after a fall. COMPARISON: No prior CT exams of the lumbar spine available FINDINGS: Partial visualization of bilateral pleural effusions. Prominent vascular calcifications are seen. Sma ll amount of free fluid is seen in the pelvis. Increased density is seen in a portion of the colon which may related to ingestion of this method type material. Degenerative changes as well as postoperative changes lumbar spine are seen. No fracture or subluxati on is identified. Osteopenia is present. There is straightening of normal lumbar curvature. Subcentimeter sclerotic focus is seen in the L4 vertebral body. This is stable compared to CT abdomen in 2018. L1-2: Broad-based disc osteophyte complex and facet hypertrophic changes are present resulting in mod erate central canal narrowing. Neural foramina are patent. L2-3: Loss of intervertebral disc height with prominent endplate degenerative changes and vacuum phen omenon in the intervertebral disc. Broad-based disc osteophyte complex is present with severe bilateral facet hypertrophic changes. Laminectomy defect L3 is present. Findings result in severe norma tral canal narrowing at the L2-3 level. Moderate right and mild left-sided neural foraminal narrowing are present. L3-4: Loss of intervertebral disc height. Vacuum phenomenon is seen at this level. Laminectomy defect is seen posteriorly. Broad-based disc osteophyte complex is present with mild facet hypertrophic changes. There is suggestion of mild/moderate central canal narrowing. Mild bilateral neural foramina l narrowing is present. Vacuum phenomenon is seen in the intervertebral disc. L4-5: Loss of intervertebral disc height. Broad-based disc osteophyte complex is present with calcifi cation of the intervertebral disc. Facet hypertrophic changes are present at this level. Moderate to severe central canal narrowing is present with mild to moderate bilateral neural foraminal narrowi ng present. L5-S1: Broad-based disc osteophyte complex is present with calcification of the posterior margin of t he intervertebral disc. Facet hypertrophic changes are present at this level. There is ligamentous thickening. Severe central canal narrowing is present with severe bilateral neural foraminal narrowin g. IMPRESSION: 1. Postoperative and degenerative changes of the lumbar spine. 2. Neural foraminal and central canal narrowing is present at multiple levels. 3. No fracture or subluxation.
[2020-12-25] MEDS ORDERED: Ketorolac Tromethamine 30 MG/ML VIAL ONE (02:35)
[2020-12-25] MEDS ORDERED: Acetaminophen 500 MG TAB ONE (02:35)
[2020-12-25 03:07] LABS: Troponin I 0.136 ng/mL (< 0.028)
--- NOTE | 2020-12-25 06:22 | PDOC.HHP ---
Hospitalist SOPHIA Syncope ED Course: This is a 80-year-old male patient with a history of pulmonary fibrosis, A. fib status post watchman procedure, diastolic heart failure, who was brought in today on account of syncope which occurred after he finished brushing his teeth. His was present at the event and I returned most of the story. Apparently his last significant amount of weight loss on account of diuresis. At the time of the event he also had 1 diarrheal stool. There were no seizure-like activities. He sat next to the top of brushing his teeth when the event occurred and his gently held him and eased him down o nto the ground. He uses oxygen [id number] so his held his oxygen cannulas on his nose during the event. Entire event lasted about 10 minutes prior to ambulance. He stood up on his feet and was brought here for further evaluation. He denied any worsening chest pain or shortness of breath or fevers. He however has noticed increased bruising and is limited in the past couple of days. At presentation his blood pressure was 120/86, pulse 109, respiratory 18, saturating 97 on room air. His labs showed WBC of 13.4, hemoglobin of 19.1 with platelet count of 78 which only a few months ago are within normal range. Creatinine was elevated at 1.6, AST ALT and ALP were all elevated. He had mild hyponatremia of 132 and hyperkalemia of 5.2. Anion gap was elevated at 19. EKG showed wide QRS rhythm with right bundle branch block and left posterior fascicular block Allergies/Adverse Reactions: Allergy/AdvReac Type Severity Reaction Status Date / Time Iodine contrast Allergy Uncoded 02/11/20 03:59 Home Medications: Medication Instructions Recorded Confirmed Type Allopurinol [Zyloprim] 300 mg PO PRN PRN 11/25/13 01/22/20 History Captopril [Capoten] 50 mg PO BID 11/25/13 01/22/20 History Magnesium Oxide [Magnesium] 400 mg PO PRN PRN 11/25/13 01/22/20 History Potassium Chloride [Klor-Con] 20 meq PO DAILY 11/25/13 01/22/20 History metFORMIN HCl 500 mg PO BID 11/25/13 01/22/20 History Levothyroxine Sodium [Tirosint] 50 mcg PO DAILY 02/18/16 01/22/20 History Aspirin Chewable [Aspirin Chewable 81 mg PO HS #0 09/29/16 01/22/20 Rx Tablet] Evolocumab [Repatha Syringe] 140 mg SQ ASDIR 12/23/16 01/22/20 History Nintedanib Esylate [Ofev] 1 tab PO BID 12/07/18 01/22/20 History predniSONE 10 mg PO DAILY 12/07/18 01/22/20 History Amlodipine [Norvasc] 2 tab PO HS 03/23/19 01/22/20 History Clopidogrel Bisulfate [Clopidogrel] 75 mg PO DAILY 03/23/19 01/22/20 History Furosemide [Lasix] 40 mg PO PRN PRN 03/23/19 01/22/20 History Tiff-3 Fatty Acids/Fish Oil 1 each PO BID 03/26/19 01/22/20 History [Tiff 3 Fish Oil Softgel] Fluconazole 150 mg PO ASDIR 07/06/19 01/22/20 History Canagliflozin [Invokana] 100 mg PO DAILY 01/22/20 01/22/20 History Past History: PMHx: Atrial fibrillation, diastolic heart failure, pulmonary fibrosis, diabetes mellitus, hypertension PSHx: Watchman procedure, cardiac ablation, FHx: None of significance Social: Drinks daily, denies drug use. Has no smoking history. Lives with his Hospitalist [facility] Constitutional: reports: weakness. denies: fever, chills, sweats Respiratory: denies: cough, shortness of breath, hemoptysis Gastrointestinal: reports: diarrhea. denies: nausea, vomiting, abdominal pain, constipation Genitourinary: reports: frequency. denies: dysuria, incontinence, hematuria All other systems reviewed; all pertinent +/- noted in HPI/Subj Hospitalist Exam General Appearance: awake alert General - other findings: Hard of hearing but in no acute distress. ENT: normocephalic atraumatic Respiratory: no wheezes, no rales, no ronchi Gastrointestinal: soft, non-tender, non-distended, normal bowel sounds Extremities: no cyanosis, no clubbing, 1+ LE edema Skin - other findings: Superficial bruising on his left arm and forearm with a small cut at the el Neurological: cranial nerve grossly intact, no focal deficits Musculoskeletal: normal tone Psychiatric: normal affect, normal behavior, A&O x 3 Hospitalist Results Result Diagrams: 12/24/20 22:42 12/24/20 22:42 Lab results: Laboratory Last Values WBC 13.4 thou/uL (4.8-10.8) H 12/24/20 22:42 RBC 6.11 mill/uL (4.70-6.10) H 12/24/20 22:42 Hgb 19.1 g/dL (14.0-18.0) H 12/24/20 22:42 Hct 62.7 % (42.0-52.0) H* 12/24/20 22:42 MCV 103.0 fL (78.0-98.0) H 12/24/20 22:42 MCH 31.2 pg (27.0-31.0) H 12/24/20 22:42 MCHC 30.4 g/dL (32.0-36.0) L 12/24/20 22:42 RDW 15.3 % (11.5-14.5) H 12/24/20 22:42 Plt Count 78 thou/uL (130-400) L 12/24/20 22:42 MPV 10.6 fL (7.4-10.4) H 12/24/20 22:42 Neutrophils % 84.6 % (42.0-75.0) H 12/24/20 22:42 Neutrophils % (Manual) Not Reportable 12/24/20 22:42 Lymphocytes % 9.9 % (21.0-51.0) L 12/24/20 22:42 Monocytes % 4.9 % (0.0-10.0) 12/24/20 22:42 Eosinophils % 0.2 % (0.0-10.0) 12/24/20 22:42 Basophils % 0.3 % (0.0-1.0) 12/24/20 22:42 Neutrophils # 11.3 thou/uL (1.40-6.50) H 12/24/20 22:42 Lymphocytes # 1.3 thou/uL (1.20-3.40) 12/24/20 22:42 Monocytes # 0.7 thou/uL (0.11-0.59) H 12/24/20 22:42 Eosinophils # 0.0 thou/uL (0.0-0.7) 12/24/20 22:42 Basophils # 0.0 thou/uL (0.0-0.2) 12/24/20 22:42 Plt Morphology Comment Appears Decreased L 12/24/20 22:42 Sodium 130 mmol/L (136-145) L 12/24/20 22:42 Potassium 5.2 mmol/L (3.5-5.1) H 12/24/20 22:42 Chloride 91 mmol/L (98-107) L 12/24/20 22:42 Carbon Dioxide 22 mmol/L (23-31) L 12/24/20 22:42 Anion Gap 22 mmol/L (10-20) H 12/24/20 22:42 BUN 32 mg/dL (8.4-25.7) H 12/24/20 22:42 Creatinine 1.64 mg/dL (0.7-1.3) H 12/24/20 22:42 Estimated GFR (MDRD) 41 12/24/20 22:42 Glucose 394 mg/dL (83-110) H 12/24/20 22:42 Calcium 9.0 mg/dL (7.8-10.44) 12/24/20 22:42 Total Bilirubin 1.6 mg/dL (0.2-1.2) H 12/24/20 22:42 AST 65 U/L (5-34) H 12/24/20 22:42 ALT 67 U/L (8-55) H 12/24/20 22:42 Alkaline Phosphatase 324 U/L (40-110) H 12/24/20 22:42 CK-MB (CK-2) 2.9 ng/mL (0-6.6) 12/24/20 22:42 Troponin I 0.136 ng/mL (< 0.028) H 12/25/20 02:07 Serum Total Protein 7.1 g/dL (5.8-8.1) 12/24/20 22:42 Albumin 3.9 g/dL (3.4-4.8) 12/24/20 22:42 Globulin 3.2 g/dL (2.4-3.5) 12/24/20 22:42 Albumin/Globulin Ratio 1.2 g/dL (1.2-2.2) 12/24/20 22:42 Hospitalist H&P A/P Plan: This is an 80-year-old male patient with a history of atrial fibrillation status post watchman, carotid artery disease, hypertension and severe pulmonary fibrosis who presents after an episode of syncope. Syncope Likely multifactorialone episode of diarrhea, significant diuresis over the past few days. We will admit and monitor in telemetry Check orthostatics Echocardiogram Consider cardiac consult if indicated Thrombocytopenia Platelets 78 This is new Unclear etiologypossibly viral/ITP Check hepatitis C HIV B12 We will consult oncology Polycythemia Likely secondary to pulmonary fibrosis We will appreciate oncology/hematology input. Elevated liver enzymes To the right upper quadrant ultrasound Consider GI evaluation if necessary. Mild hyponatremia Monitor BMP Is likely secondary to volume overload. Hyperkalemia This is mild with potassium at 5.0 No suggestive EKG changes We will monitor potassium Repeat BMP at noon DUNIA Creatinine increased from 1.19-1.67 Likely prerenal from orthostatics We will start gentle hydration Consult nephrology given his complicated cardiopulmonary status. VT prophylaxisSCD
[2020-12-25 06:35] LABS: Troponin I 0.194 ng/mL (< 0.028)
--- NOTE | 2020-12-25 07:33 | ULT ---
Sonogram abdomen complete HISTORY: Abnormal liver function tests. Abdomen pain. FINDINGS: Gallbladder is incompletely distended. No stones visible. Patient was reportedly not tender over the gallbladder fossa at the time of the exam. Common duct is 0.5 cm. Liver has a heterogeneous echotexture without focal mass or intrahepatic biliary dilatation. Small am ount of free fluid surrounds the liver in the right upper quadrant. Spleen measures up to 9.4 cm length. Diffuse thickening of the renal cortex. No hydronephrosis. The a bdominal aorta, IVC, and visualized portions of pancreas are unremarkable. IMPRESSION : No evidence of gallstones or biliary obstruction. Small volume ascites in the right upper quadrant and heterogeneous echotexture of the liver. Correlat e for acute hepatitis.
--- NOTE | 2020-12-25 08:08 | RAD ---
Portable frontal chest radiograph: 12/25/2020 COMPARISON: 12/23/2020 HISTORY: Pulmonary fibrosis, heart failure FINDINGS: The heart and mediastinal contours are stable. No pneumothorax is seen. Coarse linear interstitial density noted in the peripheral aspect of bilateral midlung zones extendin g into bilateral lung bases, left greater than right. These findings appear similar when compared to the 12/23/2020 examination. Small bilateral pleural effusions cannot be excluded, particularly witho ut lateral imaging. IMPRESSION: Interstitial opacity noted bilaterally, similar when compared to prior imaging. Findings may all be related to the patient's history of pulmonary fibrosis. However, small bilateral pleural effusions cannot be excluded, which may signify a superimposed degree of pulmonary edema.
[2020-12-25 08:52] LABS: Anion Gap 18 mmol/L (10-20); BUN (Urea Nitrogen) 35 mg/dL (8.4-25.7); Calc. Creatinine Clearance 0 mL/min (70-130); Calcium 8.5 mg/dL (7.8-10.44); Carbon Dioxide 27 mmol/L (23-31); Chloride 91 mmol/L (98-107); Glucose 350 mg/dL (83-110); Potassium 4.9 mmol/L (3.5-5.1); Sodium 131 mmol/L (136-145)
[2020-12-25] MEDS ORDERED: Allopurinol 300 MG TAB PO PRN (13:52)
[2020-12-25] MEDS ORDERED: Ondansetron PF 4 MG/2 ML Vial IVP PRN (13:56)
[2020-12-25 15:30] VITALS: BMI 26.4
[2020-12-25 15:36] LABS: #Eosinphils 0.1 thou/uL (0.0-0.7); #Lymphocytes 1.3 thou/uL (1.20-3.40); #Monocytes 0.8 thou/uL (0.11-0.59); #Neutrophils 8.2 thou/uL (1.40-6.50); %Basophils 0.2 % (0.0-1.0); %Eosinophils 1.2 % (0.0-10.0); %Lymphocytes 12.7 % (21.0-51.0); %Monocytes 7.7 % (0.0-10.0); %Neutrophils 78.2 % (42.0-75.0); Hemoglobin 17.6 g/dL (14.0-18.0); Mean Corpuscular HGB CONC 31.8 g/dL (32.0-36.0); Platelet Count 72 thou/uL (130-400); RBC Distribution Width 15.2 % (11.5-14.5); Red Blood Cell (RBC) Count 5.51 mill/uL (4.70-6.10); White Blood Cell (WBC) Count 10.5 thou/uL (4.8-10.8)
--- NOTE | 2020-12-25 15:56 | PDOC.BPN ---
- Brief Progress Note Patient is a pleasant 80 years old gentleman with multiple comorbidities who was admitted for syncopal episode this morning. Patient was seen examined at bedside. Also discussed with his . 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 Moulton. His Covid came back positive. He had his second dose of vaccine about weeks ago. He does not have any significant respiratory symptoms. He is on chronic home O2 3.5 L continuous. Will repeat CBC after hydration, hematology has been consulted. Patient follow by Dr. Barr at outpatient. Continue current management. Follow a.m. lab. We will check hepatitis panel in a.m. Appreciate specialists' input.
--- NOTE | 2020-12-25 16:27 | CON ---
DATE OF CONSULTATION: 12/25/2020 REASON FOR CONSULTATION: The patient is in the hospital with a syncopal episode. I have later found out that he has tested positive for COVID-19 infection. HISTORY OF PRESENT ILLNESS: Mr. Nicholas is 80-year-old male, who is a longstanding patient of mine in the clinic. He has idiopathic pulmonary fibrosis and is currently taking Ofev 150 mg b.i.d. and has done quite well. He does require home oxygen for that. He had a syncopal spell at home, last night he fell and has been brought in for further evaluation. He had a second COVID shot 3 days ago. Unfortunately, he has tested positive during this admission. He has been exposed to some family members who come over not wearing mask. It should be noted the patient is on daily immunosuppression with prednisone 10 mg daily. He is also on home oxygen at 3 L nasal cannula 24 hours daily. PAST MEDICAL HISTORY: Remarkable for atrial fibrillation, diastolic heart dysfunction, pulmonary fibrosis, diabetes mellitus, and hypertension. PAST SURGICAL HISTORY: He has had a Watchman procedure and cardiac ablation. 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 He occasional drinks alcohol. Does not use illicit drugs. REVIEW OF SYSTEMS: Remarkable for polycythemia. I believe it has been entertained in the past, possibly doing phlebotomy. That has never recurred. He really gets along quite well with his chronic medical problems and does not really endorse any major review of systems. PHYSICAL EXAMINATION: VITAL SIGNS: His O2 saturation was 97% on 3 L, blood pressure 120/86, pulse 109, and respirations 18. GENERAL: He is awake and appears in no distress. HEENT: Unremarkable. NECK: No adenopathy or JVD. LUNGS: He has inspiratory crackles at both bases, which is the same as previous. CARDIOVASCULAR: S1 and S2, irregular, slightly tachycardic. ABDOMEN: Soft and nontender. EXTREMITIES: No clubbing, cyanosis, or edema. LABORATORY DATA: White blood cell count 13, hematocrit 62.7, hemoglobin 19, and platelet count 78. Sodium 131, potassium 4.9, chloride 91, CO2 of 27, BUN 35, creatinine 1.6, glucose 350. LDH 474. Troponin 0.194. His x-ray shows chronic interstitial changes bilaterally. ASSESSMENT: 1. Idiopathic pulmonary fibrosis, which is stable. 2. Polycythemia - I am not sure if this is polycythemia vera or reactive polycythemia secondary to chronic hypoxemia. 3. Thrombocytopenia. 4. COVID infection. PLAN: 1. Since he has been recently vaccinated, he is probably protected against further decompensation from the COVID, so therefore I would not start him on high-dose steroids or any anticoagulation at this time. 2. I would agree with Hematology consultation for possible phlebotomy. 3. Continue his Ofev and low-dose prednisone. 4. Cardiology workup for his syncope. Job ID: [id number]
--- NOTE | 2020-12-25 16:52 | CON ---
DATE OF CONSULTATION: REASON FOR CONSULTATION: Polycythemia. HISTORY OF PRESENT ILLNESS: Mr. Nicholas is an 80-year-old gentleman who is followed by Dr. 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 He received phlebotomies in the past for a hemoglobin of greater than 18. This has been several years where he has been stable. He had a syncopal episode at home and presented to the emergency room for evaluation. He was found to be COVID positive. His hemoglobin on arrival was elevated at 19.1, WBCs were 13.4, and platelet count was low at 78,000. His liver enzymes were mildly elevated. He also had acute kidney injury. He was hydrated with a return to hemoglobin of his normal value of around 17. PAST MEDICAL HISTORY: 1. Polycythemia secondary to pulmonary fibrosis. 2. Pulmonary fibrosis. 3. Atrial flutter status post Watchman procedure. 4. Congestive heart failure. 5. Hypertension. 6. Spinal stenosis. 7. Hyperlipidemia. 8. Diabetes mellitus 2. ALLERGIES: TO IODINE CONTRAST. HOME MEDICATIONS: 1. Aspirin. 2. Capoten. 3. Dapagliflozin. 4. Fluconazole. 5. Glucophage. 6. K-Chlor. 7. Lasix. 8. Magnesium. 9. Multaq. 10. Ofev. 11. Levothyroxine. FAMILY HISTORY: Father had lung cancer. SOCIAL HISTORY: He is . Former smoker. No alcohol or illicit drug use. PHYSICAL EXAMINATION: VITAL SIGNS: Temperature is 97.5, pulse is 93, respiratory rate 20, blood pressure is 119/91, and he is 98% on 4 L nasal cannula. ASSESSMENT: 1. Polycythemia secondary to pulmonary fibrosis. 2. Mild thrombocytopenia, possibly secondary to COVID infection. DISCUSSION: The patient has received IV hydration, and his white count and hemoglobin have returned to a normal value. His platelet count remains mildly low. Would just trend his CBC and continue to monitor his liver enzymes. Thank you for the consult. We will follow along with his hospitalization. Job ID: [id number]
[2020-12-25] MEDS ORDERED: Dextrose 5% in Water 1,000 ML IV PRN (16:56)
[2020-12-25] MEDS ORDERED: Dextrose 50% Abboject 50 ML SYRINGE SLOW IVP PRN (16:56)
--- NOTE | 2020-12-25 17:25 | CON ---
DATE OF CONSULTATION: 12/25/2020 REASON FOR CONSULTATION: Syncopal episode, increased troponin. HISTORY OF PRESENT ILLNESS: Mr. Nicholas is a delightful 80-year-old gentleman with multiple medical problems, admitted with a syncopal episode. Mr. Nicholas is a pleasant gentleman, who has developed pulmonary fibrosis and right heart failure. Recently, he started having increasing amounts of fluid retention and received large doses of diuretics to elicit a diuretic response. He diuresed very heavily and did well with that. However, the patient also has felt weak and had a syncopal episode in the standing position after being in a sitting or supine position. Brought to the hospital and also found to be positive for COVID. PAST HISTORY: Multiple medical problems. 1. He has diabetes. 2. He has atrial flutter. 3. He has had atrial fibrillation. 4. Pulmonary fibrosis. 5. Right heart failure. 6. Hypercholesterolemia. 7. Statin intolerance. MEDICATIONS: At home, he was on; 1. Repatha. 2. Multaq, he is able to tolerate just 200 mg twice a day. 3. Metformin. 4. Aspirin. 5. Captopril 50 mg a day. 6. Lasix 40 mg a day. 7. Prednisone. 8. [place]-3 fatty acids, fish oil. PHYSICAL EXAMINATION: GENERAL: This is a very pleasant elderly gentleman, in no distress. VITAL SIGNS: Blood pressure 119/90, it is most recently recorded. Pulse in the 80s. NECK: Veins are normal. Carotid normal upstrokes. LUNGS: There is some coarse rale sound throughout the lower lung [place] compatible with pulmonary fibrosis. CARDIAC: Normal S1, normal S2. Soft systolic murmur, left lower sternal border. No diastolic murmur. No S3. ABDOMEN: Soft and nontender. EXTREMITIES: Warm and dry. No clubbing. No cyanosis. No significant edema. PERTINENT LABORATORY DATA: Echocardiogram done in 2019 in February revealed ejection fraction of 55% to 60%, moderate tricuspid insufficiency, mildly elevated pulmonary artery pressures. EKG, looks like possibly a junctional rhythm, right bundle-branch block with left axis deviation, bifascicular block, possible old inferior infarct. Hemoglobin is 19.1, hematocrit 62.7, platelet count 78, WBCs 13.4. Potassium is 5.2, creatinine 1.64. Peak troponin 0.194, probably demand ischemia. Chest x-ray, interstitial opacities noted compatible with pulmonary fibrosis. ASSESSMENT: 1. Pulmonary fibrosis. 2. Elevated red blood cell count. 3. Coronary artery disease. 4. History of atrial arrhythmias. 5. Mild hyperkalemia. 6. Renal insufficiency, stage 3. 7. Syncopal episode, probably orthostatic hypotension. PLAN: 1. Check BNP tomorrow. 2. Hold diuretics for now. 3. Hold CARLY inhibitors for now. We will follow with you. Job ID: [id number]
[2020-12-25] MEDS: Insulin Regular 300 UNITS/3 ML VIAL SC PRN (17:32)
[2020-12-25] MEDS: HYDROcodone/Acetaminophen 5/325 mg Tablet PO PRN (17:33)
[2020-12-25] MEDS: Fish Oil 1,000 MG CAP PO SCH (21:03)
[2020-12-25] MEDS: Insulin Glargine 15 UNITS in Pre-Filled Syringe 1 EACH SC SCH (21:03)
[2020-12-25 23:04] LABS: SARS-CoV-2 NAA Rapid Test Not Detected (NotDetected)
--- NOTE | 2020-12-26 02:55 | CON ---
DATE OF CONSULTATION: REQUESTING PHYSICIAN: Dr. Vargas. REASON FOR CONSULTATION: Acute kidney injury. IMPRESSION: 1. Acute kidney injury. This is likely hemodynamically mediated compounded in the context of diuresis. 2. History of polycythemia. 3. Idiopathic pulmonary fibrosis. PLAN: 1. Gentle rehydration, more conservative renal supportive measures. 2. Renally dose all medications and avoid potentially nephrotoxic agents. 3. We will recommend holding the captopril and metformin briefly while the renal function improves. 4. Further management will be dependent on the clinical course. HISTORY OF PRESENT ILLNESS: History is that of 80-year-old [place] gentleman, who does have history of polycythemia idiopathic pulmonary fibrosis, resolving right heart failure with fluid retention. The patient did undergo recent diuresis with appreciable response according to him, who then experienced syncopal episode and presented here, noted with a creatinine of up to 1.6, where the patient's baseline creatinine is about 1. As a result of these findings, decision was taken to involve Renal in the management of this case. The patient started receiving some IV fluids with improvement in the hemoglobin level of this patient due to hemodilution. PAST MEDICAL HISTORY: Significant for diabetes, atrial flutter, atrial fibrillation, pulmonary fibrosis, right heart failure, and dyslipidemia. MEDICATIONS: Reviewed as documented on [employer]. FAMILY HISTORY: Nonsignificantly related to presenting illness. SOCIAL HISTORY: No alcohol. No tobacco. No illicit drug use. REVIEW OF SYSTEMS: As documented in the body of the history. All the other systems were reviewed and found not to be significantly related to presenting illness. PHYSICAL EXAMINATION: VITAL SIGNS: Noted with the following vital signs, afebrile, temperature 97.5, pulse 93, respiratory rate of 20, O2 saturation of 98%, and blood pressure 119/91. HEENT: Unremarkable. CARDIOVASCULAR: First and second heart sounds were heard. RESPIRATORY: Clear to auscultation. DIGESTIVE: Revealed a benign abdomen with positive bowel sounds. EXTREMITIES: Showed mild edema. In summary, an 80-year-old gentleman, who presented here status post syncopal episode, noted with acute on chronic kidney disease. Thank you for this consultation. We will follow with you. Job ID: [id number]
[2020-12-26 04:09] LABS: Bacteria/HPF None Seen HPF (None Seen); Bilirubin Negative (Negative); Blood, Urine 1+ (Negative); Clarity Clear (Clear); Glucose, Urine (Dipstick) 300 mg/dL (Negative); Ketone, Urine Negative (Negative); Leukocyte Negative Leu/uL (Negative); Nitrite Negative (Negative); Protein, Urine (Dipstick) 200 mg/dL (Neg-Trace); RBC/HPF 0-3 HPF (0-3); Specific Gravity, Urine 1.022 (1.002-1.036); Squamous Epithelial 0-3 HPF (0-3); WBC/HPF 0-3 HPF (0-3); pH, Urine 5.5 (5.0-9.0)
[2020-12-26 04:10] LABS: Urine Culture Reflex No No
[2020-12-26 04:23] LABS: Sodium, Urine Less than 20 mmol/L (Not Available); Urea Nitrogen, Random Urine 878 mg/dl
[2020-12-26 05:09] LABS: #Eosinphils 0.2 thou/uL (0.0-0.7); #Lymphocytes 1.5 thou/uL (1.20-3.40); #Monocytes 0.7 thou/uL (0.11-0.59); #Neutrophils 6.5 thou/uL (1.40-6.50); %Basophils 0.4 % (0.0-1.0); %Eosinophils 2.8 % (0.0-10.0); %Lymphocytes 16.2 % (21.0-51.0); %Monocytes 8.1 % (0.0-10.0); %Neutrophils 72.6 % (42.0-75.0); Hemoglobin 18.1 g/dL (14.0-18.0); Mean Corpuscular HGB CONC 31.2 g/dL (32.0-36.0); Mean Corpuscular Hemoglobin 31.7 pg (27.0-31.0); Mean Platelet Volume 10.3 fL (7.4-10.4); Platelet Count 72 thou/uL (130-400); RBC Distribution Width 15.3 % (11.5-14.5)
[2020-12-26 05:13] LABS: ALT (SGPT) 76 U/L (8-55); AST (SGOT) 70 U/L (5-34); Albumin 3.2 g/dL (3.4-4.8); Alkaline Phosphatase 341 U/L (40-110); Anion Gap 15 mmol/L (10-20); BUN (Urea Nitrogen) 37 mg/dL (8.4-25.7); Bilirubin, Total 1.3 mg/dL (0.2-1.2); Calc. Creatinine Clearance 48 mL/min (70-130); Calcium 8.2 mg/dL (7.8-10.44); Carbon Dioxide 26 mmol/L (23-31); Chloride 93 mmol/L (98-107); Globulin 2.6 g/dL (2.4-3.5); Glucose 137 mg/dL (83-110); Protein, Total 5.8 g/dL (5.8-8.1); Sodium 130 mmol/L (136-145)
[2020-12-26 05:30] LABS: HBCM Index 0.06 S/CO (0-0.79); HBSAg Index 0.19 S/CO (0-0.99); Hep A IgM AB Non-Reactive (NonReactive); Hep A IgM S/CO 0.06 S/CO (0-0.79); Hep B Surf Ag Non-Reactive S/CO (NonReactive); Hep C IgG Ab Non-Reactive (NonReactive); Hep C Index 0.06 S/CO (0-0.79); Hepatitis B Core IgM Abs Non-Reactive (NonReactive)
[2020-12-26] MEDS: Levothyroxine Sodium 50 MCG TAB PO SCH (05:49)
--- NOTE | 2020-12-26 06:05 | CON ---
DATE OF CONSULTATION: 12/25/2020 SERVICE: Nephrology. REASON FOR CONSULTATION: Acute kidney injury and hyperkalemia. REQUESTING PHYSICIAN: Dr. Jair Vargas. HISTORY OF PRESENT ILLNESS: An 80-year-old male with known history of pulmonary fibrosis, atrial fibrillation, status post Watchman procedure, as well as diastolic heart failure, who was brought in after a syncopal episode. History was obtained from review of medical record and from talking to the patient and spouse. The patient reportedly felt diaphoretic and weak after using the toilet and brushing his teeth. had eased him off to the floor, where he passed out and was out for about 10 minutes. Spouse also reported that he had two prior episodes in the last 1 week. The patient has been on Lasix 40 mg b.i.d. for leg swelling, reportedly had metolazone added to his medication by assistant program director about a week ago, and he has lost about 20 pounds since then. He also has not been eating well and has daily diarrheal stool, which he attributed to the medication he is taking. He thinks it could have been worse if not for the fact that he has been taking the Imodium. There was no associated nausea or vomiting. He also denied dysuria, fever, or focal weakness. He reports generalized weakness, poor endurance and exercise tolerance. The patient uses oxygen regularly at home due to pulmonary fibrosis. On presentation to the hospital on December 24, 2020, the patient was found to have blood pressure of 120/86, tachycardic with pulse of 109, and SpO2 of 97 on room air. He however was found to have elevated creatinine of 1.6 as well as mild hyperkalemia of 5.3, hence Nephrology consult. He did receive a liter of IV fluids on presentation. PAST MEDICAL HISTORY: 1. Erythrocytosis. 2. Pulmonary fibrosis. 3. Chronic respiratory failure, on home oxygen. 4. Diastolic heart failure. 5. Atrial fibrillation, status post Watchman procedure. 6. Hypothyroidism. 7. Diabetes mellitus. 8. Hypertension. PAST SURGICAL HISTORY: 1. Cardiac ablation. 2. Watchman procedure. FAMILY HISTORY: Reviewed, but noncontributory. SOCIAL HISTORY: Drinks alcohol occasionally. He is a former smoker, but quit about more than 20 years ago. Lives with family. ALLERGIES: REPORTED ALLERGIC/ADVERSE REACTION TO THE FOLLOWING: IODINE/CONTRAST DYE. MEDICATIONS: Prior to hospital, medications are as follows; 1. Aspirin 81 mg p.o. daily. 2. Captopril 50 mg p.o. daily. 3. Farxiga 10 mg p.o. daily. 4. Fluconazole 150 mg as directed. 5. Metformin 500 mg p.o. b.i.d. with meals. 6. Potassium chloride 20 mEq p.o. daily. 7. Furosemide 40 mg p.o. daily. 8. Magnesium oxide 400 mg p.o. daily. 9. Multaq mg p.o. b.i.d. 10. Nintedanib esylate (Ofev) 150 mg p.o. b.i.d. 11. [place]pster-3 fatty acid one capsule p.o. b.i.d. 12. Prednisone 10 mg p.o. daily. 13. Repatha mg subcutaneously as directed. 14. Levothyroxine 50 mcg p.o. daily. 15. Allopurinol 300 mg p.o. daily p.r.n. REVIEW OF SYSTEMS: A 12-point review of system performed, was negative other than pertinent positives and negatives included in the history of present illness. PHYSICAL EXAMINATION: VITAL SIGNS: Blood pressure 144/75. The patient was noted to be significantly orthostatic when orthostatic vitals were checked. Pulse, tachycardic at 103. Respiratory rate 18. SpO2 is 96 on room air. GENERAL: Fatigued, elderly male, in no obvious distress. Afebrile, anicteric, acyanotic. HEENT: Normocephalic and atraumatic. Oral mucosa is moist. NECK: Supple with no obvious JVD. CARDIOVASCULAR: Irregular rhythm with normal heart sounds 1 and 2. RESPIRATORY: Fair air entry bilaterally with few transmitted breath sounds, but no obvious rhonchi or use of accessory muscles. GI: Full, soft, nontender, nondistended with normal bowel sounds. EXTREMITIES: Mild bilateral leg edema noted. No erythema appreciated. DISTRIBUTION ANALYST: Conscious and alert and oriented x3 with appropriate mental status. Cranial nerves 2 through 12 are grossly intact. The patient moves all extremities but weakly. MUSCULOSKELETAL: Bilateral arm and elbow bruising noted. DIAGNOSTIC DATA: On presentation yesterday, December 24; WBC count was 13.4, hemoglobin 19.1, MCV 103, and platelets 78. On July 16, 2020, platelet was 120. It was 85 on December 23. Chemistry on presentation, December 24, 2020, showed sodium 130, potassium 5.2, chloride 91, CO2 of 22, BUN 32, creatinine 1.64, glucose 394, calcium 9.0, total bilirubin 1.6, AST 65, ALT 67, alkaline phosphatase 224, total protein 7.1, albumin 3.9. Initial cardiac markers showed CK of 2.9, troponin of 0.085. However, troponin 4 hours later showed 0.136. Urinalysis is not yet available. Chest x-ray earlier this morning showed interstitial opacity noted bilaterally, similar when compared to prior imaging. However, small bilateral pleural effusion cannot be excluded. ASSESSMENT: 1. Acute kidney injury: Most likely due to hemodynamic factors related to diuretic therapy, poor oral intake, and increased gastrointestinal losses. The patient has baseline creatinine ranges from 0.9 to 1.1 with most recent creatinine during baseline of 1.19 on December 16, 2020. Of note, on December 23, creatinine was 1.4, which was post commencement of diuretic therapy ordered by the Cardiology. Acute infectious etiology and possible sepsis cannot be ruled out, given associated abnormal liver enzymes and generalized weakness. 2. Hyperkalemia: Most likely due to RAAS rosana and potassium supplementation use. Acute kidney injury also is contributory. 3. Bilateral lower extremity edema: Markedly improved as per the patient. Due to diastolic heart failure. 4. Abnormal liver enzymes: Due to volume depletion. Medication and possibly occult infection cannot be ruled out. 5. Recurrent syncope and collapse: Most likely due to volume depletion and orthostatic hypotension. The patient is orthostatic when checked. He is also on several antihypertensives as well as diuretics. 6. Elevated troponin. 7. Hyponatremia: Most likely due to volume depletion and use of diuretic therapy as well as appropriate ADH secretion. The patient had normal sodium prior to commencement of diuretic therapy. Metabolic acidosis, most likely related to acute kidney injury. PLAN: 1. We will get urinalysis with urine electrolytes. 2. We will hold on further diuretic therapy. We will, however, not provide IV fluid therapy at this point due to bilateral leg edema. We will also hold potassium supplementation and nephrotoxic agents. We will review urine electrolytes and urinalysis when available. 3. Further treatment to follow depending on hospital course. Many thanks for involving us in the care of this patient. We will follow along with you. We will renally dose all medications. Job ID: [id number] MTDD
[2020-12-26] MEDS: Ascorbic Acid 500 mg Chewable Tablet PO SCH (08:00)
[2020-12-26] MEDS: Aspirin Chewable 81 MG TAB PO SCH (08:01)
[2020-12-26] MEDS: Cholecalciferol (Vitamin D3) 400 UNITS TAB PO SCH (08:01)
[2020-12-26] MEDS: Magnesium Oxide 400 MG TAB PO SCH (08:02)
[2020-12-26] MEDS: Fish Oil 1,000 MG CAP PO SCH ×2 (08:02→20:53)
[2020-12-26] MEDS: Zinc Sulfate 220 MG CAP PO SCH (08:03)
[2020-12-26] MEDS: Acetaminophen 500 MG TAB PO PRN (08:03)
[2020-12-26] MEDS ORDERED: Potassium Bicarbonate/Cit Ac 20 MEQ TAB PO SCH (09:00)
[2020-12-26] MEDS ORDERED: Enoxaparin Sodium 30 MG/0.3 ML SYRINGE SC SCH (09:00)
[2020-12-26] MEDS ORDERED: Dexamethasone 4 mg/ml Vial SLOW IVP SCH (09:00)
[2020-12-26] MEDS ORDERED: predniSONE 5 MG TAB PO SCH (09:00)
[2020-12-26 09:38] LABS: SARS-CoV-2 PCR by NAA Not Detected (NotDetected)
--- NOTE | 2020-12-26 10:28 | PRG ---
DATE OF SERVICE: 12/26/2020 SUBJECTIVE: The patient's COVID test was actually false positive. Two subsequent tests have been negative. OBJECTIVE: VITAL SIGNS: Temperature 98.8, pulse 92, respirations 18, O2 saturation 95%, and blood pressure 142/81. HEENT: Unremarkable. NECK: No JVD. LUNGS: Crackles. CARDIAC: S1 and S2. Regular. EXTREMITIES: Edematous and bruised. ASSESSMENT: 1. Idiopathic pulmonary fibrosis. 2. Status post syncopal episode. 3. Polycythemia. PLAN: 1. No unstable pulmonary issues at this time. Continue Ofev. 2. Hemoglobin is still 18, which is high. I would like to see that lower, but we will defer to Hematology for management on this. 3. Further workup of syncope per Cardiology. 4. Dr. Smith is available this weekend if help needed. Job ID: [id number]
--- NOTE | 2020-12-26 15:14 | PDOC.MOPN ---
Interval History: Denies SOB, dizziness, GUTIERREZ - Vital Signs Vital Signs: Vital Signs (12 hours) Temp Pulse Resp BP Pulse Ox 12/26/20 10:25 97.5 F L 109 H 20 131/98 H 95 12/26/20 08:00 95 12/26/20 07:30 98.1 F 92 18 142/81 H 95 12/26/20 03:15 97.2 F L 83 22 H 151/94 H 94 L Weight Admit Weight 174 lb 3.2 oz Weight 174 lb 3.2 oz - Physical Exam General: Alert Lungs: Other (diminished) Abdomen: Normal bowel sounds Extremities: Other (BLE edema) Neurological: Normal speech Psych/Mental Status: Mental status NL - Labs Result Diagrams: 12/26/20 04:26 12/26/20 04:27 Lab results: Laboratory Results - last 24 hr 12/26/20 10:22: POC Glucose 125 H 12/26/20 04:27: Sodium 130 L, Potassium 4.0, Chloride 93 L, Carbon Dioxide 26, Anion Gap 15, BUN 37 H, Creatinine 1.36 H, Estimated GFR (MDRD) 50, Glucose 137 H, Calcium 8.2, Total Bilirubin 1.3 H, AST 70 H, ALT 76 H, Alkaline Phosphatase 341 H, Serum Total Protein 5.8, Albumin 3.2 L, Globulin 2.6, Albumin/Globulin Ratio 1.2 12/26/20 04:26: B-Natriuretic Peptide 507.9 H 12/26/20 04:26: Vitamin B12 Greater than 2000 H 12/26/20 04:26: Folate 15.50 12/26/20 04:26: Hepatitis A IgM Ab Non-Reactive, Hep Bs Antigen Non-Reactive, Hep B Core IgM Ab Non-Reactive, Hepatitis C Antibody Non-Reactive 12/26/20 04:26: WBC 9.0, RBC 5.70, Hgb 18.1 H, Hct 58.0 H, MCV 102.0 H, MCH 31.7 H, MCHC 31.2 L, RDW 15.3 H, Plt Count 72 L, MPV 10.3, Neutrophils % 72.6, Neutrophils % (Manual) Not Reportable, Lymphocytes % 16.2 L, Monocytes % 8.1, Eosinophils % 2.8, Basophils % 0.4, Neutrophils # 6.5, Lymphocytes # 1.5, Monocytes # 0.7 H, Eosinophils # 0.2, Basophils # 0.0 12/26/20 03:50: Urine Color Yellow, Urine Clarity Clear, Urine pH 5.5, Ur Specific [place] 1.022, Urine Protein 200 A, Urine Glucose (UA) 300, Urine Ketones Negative, Urine Blood 1+ A, Urine Nitrite Negative, Urine Bilirubin Negative, Urine Urobilinogen 2.0 A, Ur Leukocyte Esterase Negative, Urine RBC 0- 3, Urine WBC 0-3, Ur Squamous Epith Cells 0-3, Urine Bacteria None Seen, Hyaline Casts 21-50 A, Urine Culture Reflexed No 12/26/20 03:50: Urine Sodium Less than 20, Urine Urea Nitrogen 878 12/26/20 03:50: Urine Creatinine 144.97 12/25/20 21:15: SARS-CoV-2 Rap RNA(RT-PCR) Not Detected 12/25/20 20:44: POC Glucose 299 H 12/25/20 17:19: POC Glucose 287 H 12/25/20 15:26: WBC 10.5, RBC 5.51, Hgb 17.6, Hct 55.4 H, MCV 101.0 H, MCH 32.0 H, MCHC 31.8 L, RDW 15.2 H, Plt Count 72 L, MPV 10.0, Neutrophils % 78.2 H, Lymphocytes % 12.7 L, Monocytes % 7.7, Eosinophils % 1.2, Basophils % 0.2, Ne utrophils # 8.2 H, Lymphocytes # 1.3, Monocytes # 0.8 H, Eosinophils # 0.1, Basophils # 0.0 12/25/20 06:59: SARS-CoV-2 RNA (CECELIA) Not Detected Status: lab reviewed by me A/P - Problem (1) Polycythemia Current Visit: Yes Code(s): D75.1 - SECONDARY POLYCYTHEMIA Status: Acute - Plan Plan: plan therapeutic phlebotomy daily CBC
--- NOTE | 2020-12-26 15:29 | PDOC.HOSPP ---
- Subjective Subjective: Patient was seen examined at bedside. No fever. His oxygen requirement was went up to 6 L this morning, but able to taper down throughout the day. He is currently is on 4L, which close to his baseline. We have switched his prednisone to Decadron earlier today given his oxygen requirement. His initial Covid test was positive, it appeared to be false positive as his subsequent confirmatory test was negative. Patient also had 2 doses of covid vaccines, with the last one about weeks ago. - Objective Vital Signs & Weight: Vital Signs (12 hours) Temp Pulse Resp BP Pulse Ox 12/26/20 10:25 97.5 F L 109 H 20 131/98 H 95 12/26/20 08:00 95 12/26/20 07:30 98.1 F 92 18 142/81 H 95 Weight Admit Weight 174 lb 3.2 oz Weight 174 lb 3.2 oz I&O: 12/25/20 12/26/20 12/27/20 06:59 06:59 06:59 Intake Total 450 Balance 450 Result Diagrams: 12/26/20 04:26 12/26/20 04:27 Additional Labs: Accuchecks 12/26/20 12/25/20 12/25/20 10:22 20:44 17:19 POC Glucose 125 H 299 H 287 H Radiology Reviewed by me: Yes EKG Reviewed by me: Yes Hospitalist ROS - Medication Medications: Active Medications Generic Name Dose Route Start Last Admin Trade Name Freq PRN Reason Stop Dose Admin Acetaminophen 500 mg 12/25/20 13:56 12/26/20 08:03 Acetaminophen 500 Mg Tab PO 500 mg Q6H PRN Administration Pain Hydrocodone Bitart/Acetaminophen 1 tab 12/25/20 13:56 12/25/20 17:33 Hydrocodone/Acetaminophen 5/325 Mg Tablet PO 1 tab Q4H PRN Administration Moderate to Severe Pain (6-10) Ascorbic Acid 1,000 mg 12/26/20 09:00 12/26/20 08:00 Ascorbic Acid 500 Mg Chewable Tablet PO 1,000 mg DAILY GUILLERMO Administration Aspirin 81 mg 12/26/20 09:00 12/26/20 08:01 Aspirin Chewable 81 Mg Tab PO 81 mg DAILY GUILLERMO Administration Cholecalciferol 400 units 12/26/20 09:00 12/26/20 08:01 Cholecalciferol (Vitamin D3) 400 Units Tab PO 400 units DAILY GUILLERMO Administration Dexamethasone 6 mg 12/26/20 09:00 12/26/20 08:01 Dexamethasone 4 Mg/Ml Vial SLOW IVP 6 mg DAILY GUILLERMO Administration Enoxaparin Sodium 30 mg 12/26/20 09:00 12/26/20 11:40 Enoxaparin Sodium 30 Mg/0.3 Ml Syringe SC Not Given 0900 GUILLERMO Fish Oil 1,000 mg 12/25/20 21:00 12/26/20 08:02 Fish Oil 1,000 Mg Cap PO 1,000 mg BID GUILLERMO Administration Insulin Glargine 15 units/ 0.15 mls @ 0 mls/hr 12/25/20 21:00 12/25/20 21:03 Miscellaneous Medication SC 0.15 mls HS GUILLERMO Administration Insulin Human Regular 0 units 12/25/20 16:56 12/25/20 17:32 Insulin Regular 300 Units/3 Ml Vial SC 6 unit .MODERATE SLIDING SC PRN Administration Moderate Correctional Scale Levothyroxine Sodium 50 mcg 12/26/20 06:00 12/26/20 05:49 Levothyroxine Sodium 50 Mcg Tab PO 50 mcg 0600 [facility] Administration Magnesium Oxide 400 mg 12/26/20 09:00 12/26/20 08:02 Magnesium Oxide 400 Mg Tab PO 400 mg DAILY GUILLERMO Administration Potassium Bicarbonate/Citric Acid 20 meq 12/26/20 09:00 12/26/20 08:02 Potassium Bicarbonate/Cit Ac 20 Meq Tab PO 20 meq DAILY GUILLERMO Administration Zinc Sulfate 220 mg 12/26/20 09:00 12/26/20 08:03 Zinc Sulfate 220 Mg Cap PO 220 mg DAILY GUILLERMO Administration Hospitalist Exam Vitals: Vital Signs (12 hours) Temp Pulse Resp BP Pulse Ox 12/26/20 10:25 97.5 F L 109 H 20 131/98 H 95 12/26/20 08:00 95 12/26/20 07:30 98.1 F 92 18 142/81 H 95 Weight Admit Weight 174 lb 3.2 oz Weight 174 lb 3.2 oz General Appearance: NAD Eye: PERRL ENT: normocephalic atraumatic Neck: supple Heart: RRR Respiratory: CTAB Gastrointestinal: soft Extremities: no cyanosis Skin: normal turgor Neurological: cranial nerve grossly intact Hosp A/P (1) Syncope Code(s): R55 - SYNCOPE AND COLLAPSE Status: Acute (2) Pneumonia due to COVID-19 virus Code(s): U07.1 - COVID-19; J12.82 - PNEUMONIA DUE TO CORONAVIRUS DISEASE 2019 Status: Acute (3) DUNIA (acute kidney injury) Code(s): N17.9 - ACUTE KIDNEY FAILURE, UNSPECIFIED Status: Acute (4) Polycythemia Code(s): D75.1 - SECONDARY POLYCYTHEMIA Status: Acute (5) Acute respiratory failure with hypoxia Code(s): J96.01 - ACUTE RESPIRATORY FAILURE WITH HYPOXIA Status: Acute (6) DM2 (diabetes mellitus, type 2) Status: Chronic (7) HLD (hyperlipidemia) Code(s): E78.5 - HYPERLIPIDEMIA, UNSPECIFIED Status: Chronic Qualifiers: Hyperlipidemia type: unspecified Qualified Code(s): E78.5 - Hyperlipidemia, unspecified (8) HTN (hypertension) Code(s): I10 - ESSENTIAL (PRIMARY) HYPERTENSION Status: Chronic Qualifiers: - Plan Pt a pleasant 80 years old gentleman who has significant past medical history of pulmonary fibrosis, atrial fibrillation status post watchman procedure, diastolic heart failure, who was presented with syncopal episode. Syncope-likely multifactorial including volume depletion from overdiuresis. --Follow echo, continue mailing manager. Appreciate input from cardiology. DUNIA-improving with volume expansion --Secondary to GI loss, and overdiuresis. Renal function improved. Avoid nephrotoxic's agent. CARLY inhibitor, and Metformin on hold. --Follow BMP. Appreciate nephrology input. Pulmonary fibrosis --Resume home medication Ofev, appreciate input from pulmonology --Continue home dose prednisone Atrial fib, chronic --History of watchman procedure placed Polycythemia-likely secondary to chronic pulmonary fibrosis --Appreciate input from hematology, therapeutic phlebotomy to be done today --Follow CBC in a.m. Thrombocytopenia --Platelets stable, Lovenox on hold. Follow CBC. Hematology is following. Hyperkalemia --Resolved False positive Covid test --Repeated was negative x2, patient also received 2 dose vaccine. Chronic hypoxic respiratory failure secondary to pulmonary fibrosis --Home O2 dependent, 3.5 L at baseline continuous.
[2020-12-26] MEDS ORDERED: hydrALAZINE 20 MG/ML VIAL SLOW IVP PRN (16:30)
[2020-12-26] MEDS ORDERED: Carvedilol 3.125 MG TAB PO SCH (17:00)
--- NOTE | 2020-12-26 17:39 | PRG ---
DATE OF SERVICE: 12/26/2020 SUBJECTIVE: Yu is feeling better. His COVID test came back negative, it looks like it was a false-positive yesterday. Otherwise, the patient is feeling better and had no further complaints. OBJECTIVE: VITAL SIGNS: Blood pressure is variable, but most recently high, 150/107 is reported; with pulse of 80 to 90. LUNGS: Clear of any wheezing, but there are diffuse rales compatible with pulmonary fibrosis. CARDIAC: Normal S1, normal S2. ABDOMEN: Soft, nontender. EXTREMITIES: No edema. LABORATORY DATA: The patient's hemoglobin is 18.1. ASSESSMENT: 1. Pulmonary hypertension, probably mostly related to the pulmonary fibrosis. Pulmonary artery pressure extremely high on recent echocardiogram in the office with pulmonary artery pressure of 80 mmHg systolic. 2. Right heart failure with fluid retention with recent diuresis. 3. Syncope, almost certainly orthostatic hypotension occurred after diuresis and then going from supine or sitting to a standing position, regained conscious when he fell. 4. Some nonsustained ventricular tachycardia. This is not likely to be the source of his syncope as the patient has normal left ventricular function. PLAN: 1. Resume diuretics at low dose. 2. We would avoid hydralazine with this situation. 3. Avoid carvedilol in the situation. 4. Family understands he has to sit down or lie down quickly if he feels lightheaded. Unfortunately, the prognosis with this degree of pulmonary hypertension in long-term is poor. The plan is to do phlebotomy, release to home soon. They currently do not wish to be resuscitated in terms of chest compressions or intubation. Job ID: [id number]
[2020-12-26] MEDS: Insulin Regular 300 UNITS/3 ML VIAL SC PRN (17:50)
[2020-12-26] MEDS: Dronedarone HCl 400 MG TAB PO SCH (18:31)
--- NOTE | 2020-12-26 20:35 | PRG ---
DATE OF SERVICE: 12/26/2020 SUBJECTIVE: The patient noted with the following vital signs. OBJECTIVE: VITAL SIGNS: Afebrile, temperature 97.5, pulse 92 to 111, respiratory rate of 20, and O2 saturation of 94% with a blood pressure . HEENT: Unremarkable. CARDIOVASCULAR SYSTEM: First and second heart sounds were heard. RESPIRATORY SYSTEM: Clear to auscultation. DIGESTIVE SYSTEM: Revealed a benign abdomen. EXTREMITIES: Showing mild peripheral edema. LABORATORY INVESTIGATION: Showed a creatinine down to 1.36 and BUN of 37. IMPRESSION: Acute on chronic kidney disease, which seems to be improving status post diuresis. PLAN: 1. Continue current renal supportive measures. 2. Further management to be dependent on the clinical course. Job ID: [id number]
[2020-12-26] MEDS: HYDROcodone/Acetaminophen 5/325 mg Tablet PO PRN (20:52)
[2020-12-26] MEDS: Insulin Glargine 15 UNITS in Pre-Filled Syringe 1 EACH SC SCH (20:53)
[2020-12-27 04:40] LABS: #Lymphocytes 0.9 thou/uL (1.20-3.40); #Monocytes 0.7 thou/uL (0.11-0.59); #Neutrophils 7.7 thou/uL (1.40-6.50); %Basophils 0.3 % (0.0-1.0); %Eosinophils 0.1 % (0.0-10.0); %Lymphocytes 9.6 % (21.0-51.0); %Monocytes 7.9 % (0.0-10.0); %Neutrophils 82.1 % (42.0-75.0); Hemoglobin 17.7 g/dL (14.0-18.0); Mean Corpuscular HGB CONC 31.1 g/dL (32.0-36.0); Mean Corpuscular Hemoglobin 30.9 pg (27.0-31.0); Mean Corpuscular Volume 99.3 fL (78.0-98.0); Mean Platelet Volume 9.9 fL (7.4-10.4); Platelet Count 80 thou/uL (130-400); RBC Distribution Width 15.2 % (11.5-14.5); Red Blood Cell (RBC) Count 5.72 mill/uL (4.70-6.10); White Blood Cell (WBC) Count 9.3 thou/uL (4.8-10.8)
[2020-12-27 04:55] LABS: ALT (SGPT) 72 U/L (8-55); AST (SGOT) 65 U/L (5-34); Albumin 3.1 g/dL (3.4-4.8); Alkaline Phosphatase 356 U/L (40-110); Anion Gap 18 mmol/L (10-20); BUN (Urea Nitrogen) 38 mg/dL (8.4-25.7); Bilirubin, Total 1.6 mg/dL (0.2-1.2); CRP (Inflammatory) 3.01 mg/dL (= or < 0.5); Calc. Creatinine Clearance 62 mL/min (70-130); Calcium 8.2 mg/dL (7.8-10.44); Carbon Dioxide 23 mmol/L (23-31); Chloride 93 mmol/L (98-107); Globulin 2.8 g/dL (2.4-3.5); Glucose 124 mg/dL (83-110); Magnesium 2.2 mg/dL (1.6-2.6); Potassium 4.8 mmol/L (3.5-5.1); Protein, Total 5.9 g/dL (5.8-8.1); Sodium 129 mmol/L (136-145)
[2020-12-27] MEDS: Levothyroxine Sodium 50 MCG TAB PO SCH (05:29)
[2020-12-27] MEDS: Zinc Sulfate 220 MG CAP PO SCH (08:54)
[2020-12-27] MEDS: Dronedarone HCl 400 MG TAB PO SCH ×2 (08:54→17:50)
[2020-12-27] MEDS: Furosemide 40 MG TAB PO SCH (08:55)
[2020-12-27] MEDS: predniSONE 20 MG TAB PO SCH (08:55)
[2020-12-27] MEDS: Aspirin Chewable 81 MG TAB PO SCH (08:55)
[2020-12-27] MEDS: Ascorbic Acid 500 mg Chewable Tablet PO SCH (08:55)
[2020-12-27] MEDS: Cholecalciferol (Vitamin D3) 400 UNITS TAB PO SCH (08:55)
[2020-12-27] MEDS: Potassium Chloride 20 MEQ TAB PO SCH (08:56)
[2020-12-27] MEDS: Magnesium Oxide 400 MG TAB PO SCH (08:56)
[2020-12-27] MEDS: Fish Oil 1,000 MG CAP PO SCH ×2 (08:56→22:43)
--- NOTE | 2020-12-27 12:10 | PDOC.MOPN ---
Interval History: feeling much better. he thinks the phlebotomy helped him think more clearly. still with SOB - Vital Signs Vital Signs: Vital Signs (12 hours) Temp Pulse Resp BP Pulse Ox 12/27/20 11:31 98.1 F 66 18 136/74 97 12/27/20 08:40 96.9 F L 107 H 12 133/98 H 99 12/27/20 04:00 96.0 F L 89 16 130/95 H 99 Weight Admit Weight 174 lb 3.2 oz Weight 174 lb 3.2 oz - Physical Exam General: Alert, No acute distress HEENT: Atraumatic Lungs: Other (cydney crackles) Cardiovascular: Other (irreg rhythm) Abdomen: Normal bowel sounds Skin: No rashes Neurological: Normal speech - Labs Result Diagrams: 12/27/20 04:18 12/27/20 04:18 Lab results: Laboratory Results - last 24 hr 12/27/20 10:26: POC Glucose 173 H 12/27/20 06:11: POC Glucose 109 H 12/27/20 04:18: WBC 9.3, RBC 5.72, Hgb 17.7, Hct 56.7 H, MCV 99.3 H, MCH 30.9, MCHC 31.1 L, RDW 15.2 H, Plt Count 80 L, MPV 9.9, Neutrophils % 82.1 H, Neutrophils % (Manual) Not Reportable, Lymphocytes % 9.6 L, Monocytes % 7.9, Eosinophils % 0.1, Basophils % 0.3, Neutrophils # 7.7 H, Lymphocytes # 0.9 L, M onocytes # 0.7 H, Eosinophils # 0.0, Basophils # 0.0 12/27/20 04:18: Sodium 129 L, Potassium 4.8, Chloride 93 L, Carbon Dioxide 23, Anion Gap 18, BUN 38 H, Creatinine 1.06, Estimated GFR (MDRD) 67, Glucose 124 H, Calcium 8.2, Magnesium 2.2, Total Bilirubin 1.6 H, AST 65 H, ALT 72 H, Alkaline Phosphatase 356 H, C-Reactive Protein 3.01 H, Serum Total Protein 5.9, Albumin 3.1 L, Globulin 2.8, Albumin/Globulin Ratio 1.1 L 12/26/20 20:41: POC Glucose 273 H 12/26/20 17:03: POC Glucose 255 H 12/26/20 16:54: Therapeutic Phlebotomy YES, Therapeut Phleb Volume 350-500 A/P - Problem (1) Polycythemia Current Visit: Yes Code(s): D75.1 - SECONDARY POLYCYTHEMIA Status: Acute (2) Syncope Current Visit: Yes Code(s): R55 - SYNCOPE AND COLLAPSE Status: Acute (3) Acute diastolic heart failure Current Visit: No Code(s): I50.31 - ACUTE DIASTOLIC (CONGESTIVE) HEART FAILURE Status: Acute (4) Acute respiratory failure with hypoxia Current Visit: No Code(s): J96.01 - ACUTE RESPIRATORY FAILURE WITH HYPOXIA Status: Acute (5) Atrial fibrillation with RVR Current Visit: No Code(s): I48.91 - UNSPECIFIED ATRIAL FIBRILLATION Status: Acute (6) DM2 (diabetes mellitus, type 2) Current Visit: No Status: Chronic - Plan Plan: 1. follow cbc, phlebotomize if >18 2. cont diuresis 3. f/u next week with cbc in office 4. cbc monthly
[2020-12-27] MEDS: Insulin Regular 300 UNITS/3 ML VIAL SC PRN ×2 (12:32→17:51)
--- NOTE | 2020-12-27 18:23 | PDOC.HOSPP ---
- Subjective Encounter Date: 12/27/20 Encounter Time: 11:00 Subjective: Patient seen in follow-up regarding syncope. Reports that he feels well. - Objective Vital Signs & Weight: Vital Signs (12 hours) Temp Pulse Pulse Pulse Pulse Resp BP 12/27/20 15:19 96.8 F L 111 H 18 12/27/20 14:28 122 H 99 102 H 132/86 12/27/20 11:31 98.1 F 66 18 12/27/20 08:40 96.9 F L 107 H 12 BP BP Pulse Ox Pulse Ox 12/27/20 15:19 146/98 H 94 L 12/27/20 14:28 146/98 H 94 L 12/27/20 11:31 136/74 97 12/27/20 08:40 133/98 H 99 Weight Admit Weight 174 lb 3.2 oz Weight 174 lb 3.2 oz I&O: 12/26/20 12/27/20 12/28/20 06:59 06:59 06:59 Intake Total 890 Output Total 860 Balance 30 Result Diagrams: 12/27/20 04:18 12/27/20 04:18 Additional Labs: Accuchecks 12/27/20 12/27/20 12/27/20 16:17 10:26 06:11 POC Glucose 196 H 173 H 109 H 12/26/20 20:41 POC Glucose 273 H I reviewed patient's labs and MAR EKG Reviewed by me: Yes (Rebecca julio on telemetry) Hospitalist ROS - Review of Systems Cardiovascular: denies: chest pain, palpitations, orthopnea, paroxysmal noc. dys pnea, edema, light headedness Gastrointestinal: denies: nausea, vomiting, abdominal pain, diarrhea, constipation, melena, hematochezia - Medication Medications: Active Medications Generic Name Dose Route Start Last Admin Trade Name Freq PRN Reason Stop Dose Admin Acetaminophen 500 mg 12/25/20 13:56 12/26/20 08:03 Acetaminophen 500 Mg Tab PO 500 mg Q6H PRN Administration Pain Hydrocodone Bitart/Acetaminophen 1 tab 12/25/20 13:56 12/26/20 20:52 Hydrocodone/Acetaminophen 5/325 Mg Tablet PO 1 tab Q4H PRN Administration Moderate to Severe Pain (6-10) Ascorbic Acid 1,000 mg 12/26/20 09:00 12/27/20 08:55 Ascorbic Acid 500 Mg Chewable Tablet PO 1,000 mg DAILY [facility] Administration Aspirin 81 mg 12/26/20 09:00 12/27/20 08:55 Aspirin Chewable 81 Mg Tab PO 81 mg DAILY [facility] Administration Captopril 12.5 mg 12/26/20 16:37 12/27/20 17:49 Captopril 12.5 Mg Tab PO 12.5 mg BID-AC [facility] Administration Cholecalciferol 400 units 12/26/20 09:00 12/27/20 08:55 Cholecalciferol (Vitamin D3) 400 Units Tab PO 400 units DAILY [facility] Administration Dronedarone 200 mg 12/26/20 17:00 12/27/20 17:50 Dronedarone Hcl 400 Mg Tab PO 200 mg BID-[facility] Administration Enoxaparin Sodium 30 mg 12/26/20 09:00 12/26/20 11:40 Enoxaparin Sodium 30 Mg/0.3 Ml Syringe SC Not Given 0900 [facility] Fish Oil 1,000 mg 12/25/20 21:00 12/27/20 08:56 Fish Oil 1,000 Mg Cap PO 1,000 mg BID [facility] Administration Furosemide 40 mg 12/27/20 07:30 12/27/20 08:55 Furosemide 40 Mg Tab PO 40 mg DAILY-[facility] Administration Insulin Glargine 15 units/ 0.15 mls @ 0 mls/hr 12/25/20 21:00 12/26/20 20:53 Miscellaneous Medication SC 0.15 mls HS [facility] Administration Insulin Human Regular 0 units 12/25/20 16:56 12/27/20 17:51 Insulin Regular 300 Units/3 Ml Vial SC 2 unit .MODERATE SLIDING SC PRN Administration Moderate Correctional Scale Levothyroxine Sodium 50 mcg 12/26/20 06:00 12/27/20 05:29 Levothyroxine Sodium 50 Mcg Tab PO 50 mcg 0600 [facility] Administration Magnesium Oxide 400 mg 12/26/20 09:00 12/27/20 08:56 Magnesium Oxide 400 Mg Tab PO 400 mg DAILY [facility] Administration Nintedanib Esylate [ 0 each 12/25/20 21:00 12/27/20 01:47 Ofev] 150 Mg Capsule PO Not Given BID [facility] Potassium Chloride 20 meq 12/27/20 08:00 12/27/20 08:56 Potassium Chloride 20 Meq Tab PO 20 meq QAM-WM [facility] Administration Prednisone 10 mg 12/27/20 08:00 12/27/20 08:55 Prednisone 20 Mg Tab PO 10 mg QAM-WM [facility] Administration Sodium Chloride 10 ml 12/26/20 21:00 12/27/20 08:56 Flush - Normal Saline 10 Ml Syringe IVF 10 ml Q12HR [facility] Administration Zinc Sulfate 220 mg 12/26/20 09:00 12/27/20 08:54 Zinc Sulfate 220 Mg Cap PO 220 mg DAILY [facility] Administration Hospitalist Exam Vitals: Vital Signs (12 hours) Temp Pulse Pulse Pulse Pulse Resp BP 12/27/20 15:19 96.8 F L 111 H 18 12/27/20 14:28 122 H 99 102 H 132/86 12/27/20 11:31 98.1 F 66 18 12/27/20 08:40 96.9 F L 107 H 12 BP BP Pulse Ox Pulse Ox 12/27/20 15:19 146/98 H 94 L 12/27/20 14:28 146/98 H 94 L 12/27/20 11:31 136/74 97 12/27/20 08:40 133/98 H 99 Weight Admit Weight 174 lb 3.2 oz Weight 174 lb 3.2 oz General Appearance: awake alert Eye: anicteric sclera ENT: moist mucosa Neck: supple Heart: irregular Respiratory: CTAB Gastrointestinal: soft Skin: no rashes Musculoskeletal: no muscle wasting Psychiatric: normal affect, normal behavior Hosp A/P - Plan -Assessment (1) Syncope Code(s): R55 - SYNCOPE AND COLLAPSE Status: Acute (2) DUNIA (acute kidney injury) Code(s): N17.9 - ACUTE KIDNEY FAILURE, UNSPECIFIED Status: Acute (3) chronic respiratory failure with hypoxia Status: Chronic (4) Polycythemia Code(s): D75.1 - SECONDARY POLYCYTHEMIA Status: Chronic (6) DM2 (diabetes mellitus, type 2) Status: Chronic (7) HLD (hyperlipidemia) Code(s): E78.5 - HYPERLIPIDEMIA, UNSPECIFIED Status: Chronic Qualifiers: Hyperlipidemia type: unspecified Qualified Code(s): E78.5 - Hyperlipidemia, unspecified (8) HTN (hypertension) Code(s): I10 - ESSENTIAL (PRIMARY) HYPERTENSION Status: Chronic Qualifiers: (9) Pneumonia due to COVID-19 virus Code(s): U07.1 - COVID-19; J12.82 - PNEUMONIA DUE TO CORONAVIRUS DISEASE 2019 Status: Resolved - Plan Syncope -likely due to volume depletion from overdiuresis. --Continue to monitor on telemetry DUNIA-improving with volume expansion --improved --Nephrology following Pulmonary fibrosis --Continue home medications Atrial fib, chronic --History of watchman procedure placed Polycythemia-likely secondary to chronic pulmonary fibrosis --Patient reports improvement following phlebotomy Thrombocytopenia --Platelets stable Hyperkalemia --Resolved False positive Covid test --Repeated was negative x2, patient also received 2 dose vaccine. Chronic hypoxic respiratory failure secondary to pulmonary fibrosis --Home O2 dependent, 3.5 L at baseline continuous.
--- NOTE | 2020-12-27 21:19 | EKG ---
Test Reason : Blood Pressure : / mmHG Vent. Rate : 112 BPM Atrial Rate : 055 BPM P-R Int : 000 ms QRS Dur : 120 ms QT Int : 388 ms P-R-T Axes : 000 148 008 degrees QTc Int : 529 ms Wide QRS rhythm Right bundle branch block Left posterior fascicular block Bifascicular block Possible Inferior infarct , age undetermined Abnormal ECG Confirmed by SERGIO WILSON ([id number]), metropolitan editor KEN JIMENEZ ([id number]) on 12/27/2020 9:19:24 PM Referred By: Confirmed By:SERGIO WILSON
--- NOTE | 2020-12-27 21:56 | PRG ---
DATE OF SERVICE: 12/27/2020 SUBJECTIVE: Patient is feeling much better. Noted with the following vital signs. OBJECTIVE: VITAL SIGNS: Afebrile, temperature 96.8; pulse 66 to 111, respiratory rate of 18, O2 saturations 94% with blood pressure 146/98. HEENT EXAMINATION: Unremarkable. CARDIOVASCULAR SYSTEM: First and second heart sounds were heard RESPIRATORY SYSTEM: Clear to auscultation. DIGESTIVE SYSTEM: Revealed benign abdomen. EXTREMITIES: No peripheral edema. SKIN EXAMINATION: No new gross rash. LYMPHATICS: No peripheral lymphadenopathy. LABORATORY INVESTIGATION: Showed a creatinine down to 1.06, sodium of 129. IMPRESSION: 1. Acute on chronic kidney disease, which has improved. 2. Polycythemia. PLAN: 1. Continue current renal supportive measures. 2. Further management to be dependent on the clinical course. Job ID: [id number]
[2020-12-27] MEDS: Insulin Glargine 15 UNITS in Pre-Filled Syringe 1 EACH SC SCH (22:43)
[2020-12-28] MEDS: Levothyroxine Sodium 50 MCG TAB PO SCH (05:46)
[2020-12-28] MEDS: Insulin Regular 300 UNITS/3 ML VIAL SC PRN ×2 (06:30→13:46)
[2020-12-28 08:26] LABS: #Eosinphils 0.2 thou/uL (0.0-0.7); #Lymphocytes 1.4 thou/uL (1.20-3.40); #Neutrophils 6.3 thou/uL (1.40-6.50); %Basophils 0.2 % (0.0-1.0); %Eosinophils 1.9 % (0.0-10.0); %Lymphocytes 15.9 % (21.0-51.0); %Monocytes 11.3 % (0.0-10.0); %Neutrophils 70.8 % (42.0-75.0); Hemoglobin 17.3 g/dL (14.0-18.0); Mean Corpuscular HGB CONC 31.7 g/dL (32.0-36.0); Mean Corpuscular Hemoglobin 31.9 pg (27.0-31.0); Mean Platelet Volume 10.3 fL (7.4-10.4); Platelet Count 70 thou/uL (130-400); RBC Distribution Width 15.2 % (11.5-14.5); Red Blood Cell (RBC) Count 5.44 mill/uL (4.70-6.10); White Blood Cell (WBC) Count 8.9 thou/uL (4.8-10.8)
[2020-12-28 08:27] LABS: ALT (SGPT) 74 U/L (8-55); AST (SGOT) 85 U/L (5-34); Albumin 2.9 g/dL (3.4-4.8); Alkaline Phosphatase 400 U/L (40-110); Anion Gap 17 mmol/L (10-20); BUN (Urea Nitrogen) 36 mg/dL (8.4-25.7); Bilirubin, Total 1.3 mg/dL (0.2-1.2); Calc. Creatinine Clearance 67 mL/min (70-130); Carbon Dioxide 20 mmol/L (23-31); Chloride 97 mmol/L (98-107); Globulin 2.8 g/dL (2.4-3.5); Glucose 134 mg/dL (83-110); Potassium 4.7 mmol/L (3.5-5.1); Protein, Total 5.7 g/dL (5.8-8.1); Sodium 129 mmol/L (136-145)
[2020-12-28] MEDS ORDERED: Fluconazole 100 MG TAB PO SCH (09:00)
[2020-12-28] MEDS: Fish Oil 1,000 MG CAP PO SCH ×2 (10:08→22:11)
[2020-12-28] MEDS: Dronedarone HCl 400 MG TAB PO SCH ×2 (10:08→16:55)
[2020-12-28] MEDS: Ascorbic Acid 500 mg Chewable Tablet PO SCH (10:09)
[2020-12-28] MEDS: Aspirin Chewable 81 MG TAB PO SCH (10:09)
[2020-12-28] MEDS: Furosemide 40 MG TAB PO SCH (10:10)
[2020-12-28] MEDS: predniSONE 20 MG TAB PO SCH (10:10)
[2020-12-28] MEDS: Magnesium Oxide 400 MG TAB PO SCH (10:10)
[2020-12-28] MEDS: Potassium Chloride 20 MEQ TAB PO SCH (10:11)
[2020-12-28] MEDS: Zinc Sulfate 220 MG CAP PO SCH (10:11)
[2020-12-28] MEDS: Cholecalciferol (Vitamin D3) 400 UNITS TAB PO SCH (10:11)
--- NOTE | 2020-12-28 16:49 | PDOC.HOSPP ---
- Subjective Encounter Date: 12/28/20 Encounter Time: 10:00 Subjective: Patient seen for follow-up regarding syncope. Reports he slept well. He denies any complaints today. - Objective Vital Signs & Weight: Vital Signs (12 hours) Temp Pulse Resp BP BP Pulse Ox 12/28/20 15:13 148/72 H 12/28/20 12:00 98.3 F 115 H 19 146/78 H 97 12/28/20 07:50 97.6 F 84 14 152/84 H 96 Weight Admit Weight 174 lb 3.2 oz Weight 174 lb 3.2 oz I&O: 12/27/20 12/28/20 12/29/20 06:59 06:59 06:59 Intake Total 890 1210 Output Total 860 1550 Balance 30 -340 Result Diagrams: 12/28/20 07:50 12/28/20 07:50 Additional Labs: Accuchecks 12/28/20 12/28/20 12:47 06:02 POC Glucose 198 H 179 H Labs and MAR reviewed by ne Hospitalist ROS - Review of Systems Genitourinary: denies: dysuria, frequency, incontinence, hematuria, retention Musculoskeletal: denies: neck pain, shoulder pain, arm pain, back pain, hand pain, leg pain, foot pain - Medication Medications: Active Medications Generic Name Dose Route Start Last Admin Trade Name Freq PRN Reason Stop Dose Admin Acetaminophen 500 mg 12/25/20 13:56 12/26/20 08:03 Acetaminophen 500 Mg Tab PO 500 mg Q6H PRN Administration Pain Hydrocodone Bitart/Acetaminophen 1 tab 12/25/20 13:56 12/26/20 20:52 Hydrocodone/Acetaminophen 5/325 Mg Tablet PO 1 tab Q4H PRN Administration Moderate to Severe Pain (6-10) Ascorbic Acid 1,000 mg 12/26/20 09:00 12/28/20 10:09 Ascorbic Acid 500 Mg Chewable Tablet PO 1,000 mg DAILY [facility] Administration Aspirin 81 mg 12/26/20 09:00 12/28/20 10:09 Aspirin Chewable 81 Mg Tab PO 81 mg DAILY [facility] Administration Captopril 12.5 mg 12/26/20 16:37 12/28/20 15:13 Captopril 12.5 Mg Tab PO 12.5 mg BID-AC [facility] Administration Cholecalciferol 400 units 12/26/20 09:00 12/28/20 10:11 Cholecalciferol (Vitamin D3) 400 Units Tab PO 400 units DAILY [facility] Administration Dronedarone 200 mg 12/26/20 17:00 12/28/20 10:08 Dronedarone Hcl 400 Mg Tab PO 200 mg BID-WM [facility] Administration Enoxaparin Sodium 30 mg 12/26/20 09:00 12/26/20 11:40 Enoxaparin Sodium 30 Mg/0.3 Ml Syringe SC Not Given 0900 [facility] Fish Oil 1,000 mg 12/25/20 21:00 12/28/20 10:08 Fish Oil 1,000 Mg Cap PO 1,000 mg BID [facility] Administration Fluconazole 150 mg 12/28/20 09:00 12/28/20 10:08 Fluconazole 100 Mg Tab PO 150 mg Mclain@0900 [facility] Administration Furosemide 40 mg 12/27/20 07:30 12/28/20 10:10 Furosemide 40 Mg Tab PO 40 mg DAILY-[facility] Administration Insulin Glargine 15 units/ 0.15 mls @ 0 mls/hr 12/25/20 21:00 12/27/20 22:43 Miscellaneous Medication SC 0.15 mls HS [facility] Administration Insulin Human Regular 0 units 12/25/20 16:56 12/28/20 13:46 Insulin Regular 300 Units/3 Ml Vial SC 2 unit .MODERATE SLIDING SC PRN Administration Moderate Correctional Scale Levothyroxine Sodium 50 mcg 12/26/20 06:00 12/28/20 05:46 Levothyroxine Sodium 50 Mcg Tab PO 50 mcg 0600 [facility] Administration Magnesium Oxide 400 mg 12/26/20 09:00 12/28/20 10:10 Magnesium Oxide 400 Mg Tab PO 400 mg DAILY [facility] Administration Nintedanib Esylate [ 0 each 12/25/20 21:00 12/28/20 10:23 Ofev] 150 Mg Capsule PO 1 each BID [facility] Administration Potassium Chloride 20 meq 12/27/20 08:00 12/28/20 10:11 Potassium Chloride 20 Meq Tab PO 20 meq QAM-WM [facility] Administration Prednisone 10 mg 12/27/20 08:00 12/28/20 10:10 Prednisone 20 Mg Tab PO 10 mg QAM-WM [facility] Administration Sodium Chloride 10 ml 12/26/20 21:00 12/28/20 10:12 Flush - Normal Saline 10 Ml Syringe IVF 10 ml Q12HR [facility] Administration Zinc Sulfate 220 mg 12/26/20 09:00 12/28/20 10:11 Zinc Sulfate 220 Mg Cap PO 220 mg DAILY [facility] Administration Hospitalist Exam Vitals: Vital Signs (12 hours) Temp Pulse Resp BP BP Pulse Ox 12/28/20 15:13 148/72 H 12/28/20 12:00 98.3 F 115 H 19 146/78 H 97 12/28/20 07:50 97.6 F 84 14 152/84 H 96 Weight Admit Weight 174 lb 3.2 oz Weight 174 lb 3.2 oz General Appearance: awake alert Eye: anicteric sclera ENT: normocephalic atraumatic Neck: no thyromegaly, no lymphadenopathy Heart: RRR Respiratory: CTAB Gastrointestinal: soft, non-tender Skin: no rashes Psychiatric: normal affect Hosp A/P - Plan -Assessment (1) Syncope Code(s): R55 - SYNCOPE AND COLLAPSE Status: Acute (2) DUNIA (acute kidney injury) Code(s): N17.9 - ACUTE KIDNEY FAILURE, UNSPECIFIED Status: Acute (3) chronic respiratory failure with hypoxia Status: Chronic (4) Polycythemia Code(s): D75.1 - SECONDARY POLYCYTHEMIA Status: Chronic (6) DM2 (diabetes mellitus, type 2) Status: Chronic (7) HLD (hyperlipidemia) Code(s): E78.5 - HYPERLIPIDEMIA, UNSPECIFIED Status: Chronic Qualifiers: Hyperlipidemia type: unspecified Qualified Code(s): E78.5 - Hyperlipidemia, unspecified (8) HTN (hypertension) Code(s): I10 - ESSENTIAL (PRIMARY) HYPERTENSION Status: Chronic Qualifiers: (9) Pneumonia due to COVID-19 virus Code(s): U07.1 - COVID-19; J12.82 - PNEUMONIA DUE TO CORONAVIRUS DISEASE 2018 Status: Resolved - Plan Syncope -no recurrence -likely due to volume depletion from overdiuresis. --Continue to monitor on telemetry DUNIA-improving with volume expansion --Resolved --Nephrology following Pulmonary fibrosis --Stable Atrial fib, chronic --History of watchman procedure placed Polycythemia-likely secondary to chronic pulmonary fibrosis --Hemoglobin improved to 17.3, status post phlebotomy. Thrombocytopenia --Platelets stable Hyperkalemia --Resolved False positive Covid test --Repeated was negative x2, patient also received 2 dose vaccine. Chronic hypoxic respiratory failure secondary to pulmonary fibrosis --Home O2 dependent, 3.5 L at baseline continuous.
--- NOTE | 2020-12-28 17:13 | PRG ---
DATE OF SERVICE: 12/28/2020 SUBJECTIVE: The patient was seen and noted with the following vital signs. OBJECTIVE: VITAL SIGNS: Afebrile, temperature 97.6, pulse 84, respiratory rate of 14, O2 saturations of 96%, and blood pressure 152/84. HEENT: Unremarkable. CARDIOVASCULAR SYSTEM: First and second heart sounds were heard. RESPIRATORY SYSTEM: Clear to auscultation. DIGESTIVE SYSTEM: Revealed a benign abdomen. Positive bowel sounds. EXTREMITIES: No peripheral edema. SKIN: No new gross rash. LYMPHATICS: No peripheral lymphadenopathy. IMPRESSION: Acute on chronic kidney disease which seems to have improved. PLAN: Continue current renal supportive measures. Job ID: [id number]
[2020-12-28] MEDS: Insulin Glargine 15 UNITS in Pre-Filled Syringe 1 EACH SC SCH (22:13)
[2020-12-29] MEDS: Melatonin 3 MG TAB PO PRN ×2 (01:43→22:32)
[2020-12-29 05:35] LABS: #Eosinphils 0.1 thou/uL (0.0-0.7); #Lymphocytes 1.3 thou/uL (1.20-3.40); #Monocytes 1.1 thou/uL (0.11-0.59); #Neutrophils 7.9 thou/uL (1.40-6.50); %Basophils 0.3 % (0.0-1.0); %Eosinophils 1.3 % (0.0-10.0); %Lymphocytes 12.1 % (21.0-51.0); %Monocytes 10.3 % (0.0-10.0); Hemoglobin 16.7 g/dL (14.0-18.0); Mean Corpuscular HGB CONC 31.3 g/dL (32.0-36.0); Mean Corpuscular Hemoglobin 31.1 pg (27.0-31.0); Mean Corpuscular Volume 99.4 fL (78.0-98.0); Mean Platelet Volume 10.5 fL (7.4-10.4); Platelet Count 78 thou/uL (130-400); RBC Distribution Width 15.1 % (11.5-14.5); Red Blood Cell (RBC) Count 5.36 mill/uL (4.70-6.10); White Blood Cell (WBC) Count 10.4 thou/uL (4.8-10.8)
[2020-12-29 05:52] LABS: ALT (SGPT) 72 U/L (8-55); AST (SGOT) 84 U/L (5-34); Alkaline Phosphatase 409 U/L (40-110); Anion Gap 16 mmol/L (10-20); BUN (Urea Nitrogen) 32 mg/dL (8.4-25.7); Bilirubin, Total 1.4 mg/dL (0.2-1.2); Calc. Creatinine Clearance 59 mL/min (70-130); Calcium 8.2 mg/dL (7.8-10.44); Carbon Dioxide 24 mmol/L (23-31); Chloride 96 mmol/L (98-107); Globulin 2.6 g/dL (2.4-3.5); Glucose 180 mg/dL (83-110); Potassium 4.5 mmol/L (3.5-5.1); Protein, Total 5.6 g/dL (5.8-8.1); Sodium 131 mmol/L (136-145)
[2020-12-29] MEDS: Levothyroxine Sodium 50 MCG TAB PO SCH (06:31)
[2020-12-29] MEDS: Magnesium Oxide 400 MG TAB PO SCH (08:39)
[2020-12-29] MEDS: Furosemide 40 MG TAB PO SCH (08:39)
[2020-12-29] MEDS: Ascorbic Acid 500 mg Chewable Tablet PO SCH (08:39)
[2020-12-29] MEDS: Cholecalciferol (Vitamin D3) 400 UNITS TAB PO SCH (08:40)
[2020-12-29] MEDS: Zinc Sulfate 220 MG CAP PO SCH (08:40)
[2020-12-29] MEDS: Potassium Chloride 20 MEQ TAB PO SCH (08:40)
[2020-12-29] MEDS: Dronedarone HCl 400 MG TAB PO SCH (08:40)
[2020-12-29] MEDS: predniSONE 20 MG TAB PO SCH (08:40)
[2020-12-29] MEDS: Fish Oil 1,000 MG CAP PO SCH ×2 (08:40→22:32)
[2020-12-29] MEDS: Aspirin Chewable 81 MG TAB PO SCH (08:40)
--- NOTE | 2020-12-29 12:59 | PRG ---
DATE OF SERVICE: 12/29/2020 SUBJECTIVE: Mr. Nicholas continues to feel okay in terms of breathing, but his main problem is diarrhea. OBJECTIVE: VITAL SIGNS: His blood pressure 164/97, pulse is in the 90s. LUNGS: Diffuse rales. CARDIAC: Normal S1, normal S2. ABDOMEN: Somewhat distended. EXTREMITIES: Mild edema. LABORATORY DATA: Reviewing the chart, the patient's BNP earlier during the hospitalization was 507.9. Echocardiogram showed normal left ventricular function with pulmonary hypertension. Abdominal ultrasound done on the revealed no gallstones, no biliary obstruction. Small amount of ascites. ASSESSMENT: 1. 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 2. Atrial arrhythmias. 3. Diarrhea, possibly related to Multaq. PLAN: 1. Hold Multaq for now. 2. If he has recurrent atrial fibrillation with a rapid rate, could consider AV junction ablation and pacemaker insertion. Job ID: [id number]
[2020-12-29] MEDS ORDERED: Loperamide HCl 2 MG CAP PO SCH (17:00)
[2020-12-29] MEDS ORDERED: Saccharomyces boulardii 250 MG CAP PO SCH (17:15)
[2020-12-29] MEDS: Insulin Regular 300 UNITS/3 ML VIAL SC PRN (17:19)
--- NOTE | 2020-12-29 17:54 | PDOC.HOSPP ---
- Subjective Encounter Date: 12/29/20 Encounter Time: 17:51 Subjective: Patient seen for follow-up regarding. No recurrence of syncope. He complains of ongoing diarrhea, over the last 3 weeks. - Objective Vital Signs & Weight: Vital Signs (12 hours) Temp Pulse Resp BP BP Pulse Ox 12/29/20 17:16 148/72 H 12/29/20 08:38 148/72 H 12/29/20 08:00 98.1 F 79 19 141/70 H 97 Weight Admit Weight 174 lb 3.2 oz Weight 180 lb I&O: 12/28/20 12/29/20 12/30/20 06:59 06:59 06:59 Intake Total 1210 1680 Output Total 1550 1050 Balance -340 630 Result Diagrams: 12/29/20 04:53 12/29/20 04:53 Additional Labs: Accuchecks 12/29/20 12/29/20 12/29/20 16:51 11:15 06:15 POC Glucose 199 H 122 H 158 H 12/28/20 21:13 POC Glucose 143 H I reviewed patient's labs and MAR EKG Reviewed by me: Yes (Normal sinus rhythm on telemetry) Hospitalist ROS - Review of Systems Cardiovascular: denies: chest pain, palpitations, orthopnea, paroxysmal noc. dyspnea, edema, light headedness Gastrointestinal: reports: diarrhea. denies: nausea, vomiting, abdominal pain, constipation, melena, hematochezia - Medication Medications: Active Medications Generic Name Dose Route Start Last Admin Trade Name Freq PRN Reason Stop Dose Admin Acetaminophen 500 mg 12/25/20 13:56 12/26/20 08:03 Acetaminophen 500 Mg Tab PO 500 mg Q6H PRN Administration Pain Hydrocodone Bitart/Acetaminophen 1 tab 12/25/20 13:56 12/26/20 20:52 Hydrocodone/Acetaminophen 5/325 Mg Tablet PO 1 tab Q4H PRN Administration Moderate to Severe Pain (6-10) Ascorbic Acid 1,000 mg 12/26/20 09:00 12/29/20 08:39 Ascorbic Acid 500 Mg Chewable Tablet PO 1,000 mg DAILY [facility] Administration Aspirin 81 mg 12/26/20 09:00 12/29/20 08:40 Aspirin Chewable 81 Mg Tab PO 81 mg DAILY [facility] Administration Captopril 12.5 mg 12/26/20 16:37 12/29/20 17:16 Captopril 12.5 Mg Tab PO 12.5 mg BID-AC [facility] Administration Cholecalciferol 400 units 12/26/20 09:00 12/29/20 08:40 Cholecalciferol (Vitamin D3) 400 Units Tab PO 400 units DAILY [facility] Administration Enoxaparin Sodium 30 mg 12/26/20 09:00 12/26/20 11:40 Enoxaparin Sodium 30 Mg/0.3 Ml Syringe SC Not Given 0900 [facility] Fish Oil 1,000 mg 12/25/20 21:00 12/29/20 08:40 Fish Oil 1,000 Mg Cap PO 1,000 mg BID [facility] Administration Fluconazole 150 mg 12/28/20 09:00 12/28/20 10:08 Fluconazole 100 Mg Tab PO 150 mg Mclain@0900 [facility] Administration Furosemide 40 mg 12/27/20 07:30 12/29/20 08:39 Furosemide 40 Mg Tab PO 40 mg DAILY-AC [facility] Administration Insulin Glargine 15 units/ 0.15 mls @ 0 mls/hr 12/25/20 21:00 12/28/20 22:13 Miscellaneous Medication SC 0.15 mls HS [facility] Administration Insulin Human Regular 0 units 12/25/20 16:56 12/29/20 17:19 Insulin Regular 300 Units/3 Ml Vial SC 2 unit .MODERATE SLIDING SC PRN Administration Moderate Correctional Scale Levothyroxine Sodium 50 mcg 12/26/20 06:00 12/29/20 06:31 Levothyroxine Sodium 50 Mcg Tab PO 50 mcg 0600 [facility] Administration Loperamide HCl 4 mg 12/29/20 17:00 12/29/20 17:16 Loperamide Hcl 2 Mg Cap PO 12/29/20 19:00 4 mg NOW [facility] Administration Magnesium Oxide 400 mg 12/26/20 09:00 12/29/20 08:39 Magnesium Oxide 400 Mg Tab PO 400 mg DAILY [facility] Administration Melatonin 6 mg 12/29/20 00:56 12/29/20 01:43 Melatonin 3 Mg Tab PO 6 mg HS PRN Administration Insomnia Nintedanib Esylate [ 0 each 12/25/20 21:00 12/29/20 08:41 Ofev] 150 Mg Capsule PO 1 each BID [facility] Administration Potassium Chloride 20 meq 12/27/20 08:00 12/29/20 08:40 Potassium Chloride 20 Meq Tab PO 20 meq QAM-WM [facility] Administration Prednisone 10 mg 12/27/20 08:00 12/29/20 08:40 Prednisone 20 Mg Tab PO 10 mg QAM-WM [facility] Administration Sodium Chloride 10 ml 12/26/20 21:00 12/29/20 17:17 Flush - Normal Saline 10 Ml Syringe IVF 10 ml Q12HR [facility] Administration Zinc Sulfate 220 mg 12/26/20 09:00 12/29/20 08:40 Zinc Sulfate 220 Mg Cap PO 220 mg DAILY [facility] Administration Hospitalist Exam Vitals: Vital Signs (12 hours) Temp Pulse Resp BP BP Pulse Ox 12/29/20 17:16 148/72 H 12/29/20 08:38 148/72 H 12/29/20 08:00 98.1 F 79 19 141/70 H 97 Weight Admit Weight 174 lb 3.2 oz Weight 180 lb General Appearance: awake alert Eye: anicteric sclera ENT: moist mucosa Neck: supple Heart: RRR Respiratory: CTAB Gastrointestinal: soft, non-tender Skin: no rashes Psychiatric: normal affect Hosp A/P - Plan -Assessment (1) Syncope Code(s): R55 - SYNCOPE AND COLLAPSE Status: Acute (2) DUNIA (acute kidney injury) Code(s): N17.9 - ACUTE KIDNEY FAILURE, UNSPECIFIED Status: Acute (3) chronic respiratory failure with hypoxia Status: Chronic (4) Polycythemia Code(s): D75.1 - SECONDARY POLYCYTHEMIA Status: Chronic (6) DM2 (diabetes mellitus, type 2) Status: Chronic (7) HLD (hyperlipidemia) Code(s): E78.5 - HYPERLIPIDEMIA, UNSPECIFIED Status: Chronic Qualifiers: Hyperlipidemia type: unspecified Qualified Code(s): E78.5 - Hyperlipidemia, unspecified (8) HTN (hypertension) Code(s): I10 - ESSENTIAL (PRIMARY) HYPERTENSION Status: Chronic Qualifiers: (9) Pneumonia due to COVID-19 virus Code(s): U07.1 - COVID-19; J12.82 - PNEUMONIA DUE TO CORONAVIRUS DISEASE 2019 Status: Resolved - Plan Syncope -no recurrence -likely due to volume depletion from overdiuresis. DUNIA-improving with volume expansion --Resolved Pulmonary fibrosis --Stable Atrial fib, chronic --History of watchman procedure Polycythemia-likely secondary to chronic pulmonary fibrosis --Hemoglobin improved to 16.7, status post phlebotomy. Thrombocytopenia --Platelets stable Hyperkalemia --Resolved False positive Covid test --Repeated was negative x2, patient also received 2 dose vaccine. Chronic hypoxic respiratory failure secondary to pulmonary fibrosis --Home O2 dependent, 3.5 L at baseline continuous. Diarrhea --C. difficile test negative. Start Imodium. Start Florastor. Patient's updated by the bedside. She does not wish for rehab. She wished to take patient home at the time of discharge. Multitak was discontinued today.
--- NOTE | 2020-12-29 18:30 | PRG ---
DATE OF SERVICE: 12/29/2020 OBJECTIVE: VITAL SIGNS: The patient is noted with the following vital signs; afebrile, temperature 98.1, pulse 79, blood pressure 148/72, respiratory rate of 19, O2 saturations of 97%. HEENT: Unremarkable. CARDIOVASCULAR SYSTEM: First and second heart sounds were heard. RESPIRATORY SYSTEM: Clear to auscultation. DIGESTIVE SYSTEM: Revealed a benign abdomen with positive bowel sounds. EXTREMITIES: No peripheral edema. SKIN: No new gross rash. LYMPHATICS: No peripheral lymphadenopathy. IMPRESSION: 1. Acute on chronic kidney disease, which seems to have improved. 2. Atrial fibrillation. PLAN: We will continue current renal supportive measures. Job ID: [id number]
[2020-12-29] MEDS: Insulin Glargine 15 UNITS in Pre-Filled Syringe 1 EACH SC SCH (22:34)
[2020-12-30 05:11] LABS: #Eosinphils 0.2 thou/uL (0.0-0.7); #Lymphocytes 1.8 thou/uL (1.20-3.40); #Monocytes 1.2 thou/uL (0.11-0.59); #Neutrophils 7.1 thou/uL (1.40-6.50); %Basophils 0.3 % (0.0-1.0); %Eosinophils 2.2 % (0.0-10.0); %Lymphocytes 17.3 % (21.0-51.0); %Monocytes 11.6 % (0.0-10.0); %Neutrophils 68.5 % (42.0-75.0); Hemoglobin 17.4 g/dL (14.0-18.0); Mean Corpuscular HGB CONC 30.7 g/dL (32.0-36.0); Mean Corpuscular Hemoglobin 30.7 pg (27.0-31.0); Mean Platelet Volume 10.6 fL (7.4-10.4); Platelet Count 77 thou/uL (130-400); RBC Distribution Width 15.1 % (11.5-14.5); Red Blood Cell (RBC) Count 5.68 mill/uL (4.70-6.10); White Blood Cell (WBC) Count 10.3 thou/uL (4.8-10.8)
[2020-12-30 05:22] LABS: ALT (SGPT) 83 U/L (8-55); AST (SGOT) 79 U/L (5-34); Albumin 3.3 g/dL (3.4-4.8); Alkaline Phosphatase 491 U/L (40-110); Anion Gap 16 mmol/L (10-20); BUN (Urea Nitrogen) 25 mg/dL (8.4-25.7); Bilirubin, Total 1.3 mg/dL (0.2-1.2); Calc. Creatinine Clearance 68 mL/min (70-130); Calcium 8.2 mg/dL (7.8-10.44); Carbon Dioxide 22 mmol/L (23-31); Chloride 98 mmol/L (98-107); Globulin 2.8 g/dL (2.4-3.5); Glucose 73 mg/dL (83-110); Potassium 4.3 mmol/L (3.5-5.1); Protein, Total 6.1 g/dL (5.8-8.1); Sodium 132 mmol/L (136-145)
[2020-12-30] MEDS: Levothyroxine Sodium 50 MCG TAB PO SCH (06:07)
[2020-12-30] MEDS: Insulin Regular 300 UNITS/3 ML VIAL SC PRN (06:12)
[2020-12-30] MEDS ORDERED: Saccharomyces boulardii 250 MG CAP PO SCH (09:00)
[2020-12-30] MEDS: Aspirin Chewable 81 MG TAB PO SCH (09:50)
[2020-12-30] MEDS: Acetaminophen 500 MG TAB PO PRN (09:50)
[2020-12-30] MEDS: Fish Oil 1,000 MG CAP PO SCH (09:52)
[2020-12-30] MEDS: Ascorbic Acid 500 mg Chewable Tablet PO SCH (09:52)
[2020-12-30] MEDS: Cholecalciferol (Vitamin D3) 400 UNITS TAB PO SCH (09:52)
[2020-12-30] MEDS: Zinc Sulfate 220 MG CAP PO SCH (09:54)
[2020-12-30] MEDS: Furosemide 40 MG TAB PO SCH (09:54)
[2020-12-30] MEDS: predniSONE 20 MG TAB PO SCH (09:54)
[2020-12-30] MEDS: Loperamide HCl 2 MG CAP PO PRN ×2 (09:54→15:59)
[2020-12-30] MEDS: Potassium Chloride 20 MEQ TAB PO SCH (09:54)
[2020-12-30] MEDS: Magnesium Oxide 400 MG TAB PO SCH (10:05)
[2020-12-30 13:54] VITALS: TEMP 97.4
--- NOTE | 2020-12-30 14:06 | PDOC.DS.DS ---
Provider Date of Admission: 12/25/20 01:59 Date of Discharge: 12/30/20 Admitting Provider: Jair Vargas MD Consultations: Cardiology (Dr. Moulton), Nephrology (Dr. Mendiola), Oncology (Dr. Barr) Primary Care Physician: Radha Shea MD Course Hospital Course: Discharge diagnosis: 1. Syncope 2. Acute on chronic stage II renal failure 3. Hyperkalemia 4. Hyponatremia 5. Polycythemia 6. Abnormal liver function tests 7. Thrombocytopenia Hospital course: Patient is a pleasant 80-year-old gentleman who was admitted to the hospital on December 25, 2020 for in the context of diarrhea and diuretic use. He also has a history of polycythemia. He also had abnormal liver function tests. He was seen by cardiology, nephrology and oncology services. He improved with intravenous hydration. Abdominal ultrasound did not show any evidence of gallstones or biliary obstruction. He had small volume ascites in the right upper quadrant and heterogeneous echotexture of the liver. Hepatitis serology was negative. Covid test was negative. 2D echocardiogram showed trivial pericardial effusion and left ventricle ejection fraction of 60 to 65%, with E/a flow reversal suggestive of diastolic dysfunction. Patient underwent phlebotomy with improvement in polycythemia. Multaq was discontinued because of diarrhea. He was started on Florastor and Imodium after C. difficile test was negative. Captopril dose was decreased to 12.5 mg 2 times a day. He continued to improve clinically and is being discharged home in a stable condition. Many thanks for allowing me to participate in your patient's care. Please feel free to contact me with any questions or concerns. Discharge destination: Home Total amount of time spent coordinating this discharge: 25 minutes Resuscitation Status: 12/26/20 17:11 Resuscitation Status Routine Resuscitation Status: PRTL: Chem only Discussed with: Dr. Moulton spoke with pt Lab Results: 12/30/20 04:20 12/30/20 04:20 Abnormal Lab Results - Last 48 hrs 12/25/20 08:18: Erythropoietin 173.0 H 12/29/20 04:53: Sodium 131 L, Chloride 96 L, BUN 32 H, Total Bilirubin 1.4 H, AST 84 H, ALT 72 H, Alkaline Phosphatase 409 H, Serum Total Protein 5.6 L, Albumin 3.0 L 12/29/20 04:53: Hct 53.3 H, MCV 99.4 H, MCH 31.1 H, MCHC 31.3 L, RDW 15.1 H, Plt Count 78 L, MPV 10.5 H, Neutrophils % 76.0 H, Lymphocytes % 12.1 L, Monocytes % 10.3 H, Neutrophils # 7.9 H, Monocytes # 1.1 H 12/30/20 04:20: Sodium 132 L, Carbon Dioxide 22 L, Total Bilirubin 1.3 H, AST 79 H, ALT 83 H, Alkaline Phosphatase 491 H, Albumin 3.3 L 12/30/20 04:20: Hct 56.9 H, MCV 100.0 H, MCHC 30.7 L, RDW 15.1 H, Plt Count 77 L, MPV 10.6 H, Lymphocytes % 17.3 L, Monocytes % 11.6 H, Neutrophils # 7.1 H, Monocytes # 1.2 H Microbiology - Entire Visit 12/29/20 Unknown Stool - Loose Stool Culture - Preliminary 12/29/20 Unknown Stool - Loose Escherichia coli 0157 Culture - Final 12/29/20 Unknown Stool - Pending C. difficile GDH Antigen & Toxins - Final 12/29/20 Unknown Stool - Loose Stool Lactoferrin - Final 12/29/20 Unknown Stool - Loose Campylobacter Antigen Assay - Final 12/29/20 Unknown Stool - Loose Shiga Toxin Test - Final Vitals: Vital Signs (12 hours) Temp Pulse Resp BP BP Pulse Ox 12/30/20 12:00 97.4 F L 108 H 16 146/76 H 96 12/30/20 09:51 156/81 H 12/30/20 08:00 97.9 F 71 18 144/85 H 99 12/30/20 04:00 96.4 F L 110 H 20 162/109 H 99 Weight Admit Weight 174 lb 3.2 oz Weight 177 lb 11.2 oz Physical Exam: The patient was seen and examined on the day of discharge. Patient denies chest pain or shortness of breath. Vital signs are stable. S1 and S2 are heard. Lungs are clear to auscultation bilaterally. Plan Prescriptions: Captopril 12.5 mg PO BID #60 tablet Saccharomyces boulardii [Florastor] 250 mg PO DAILY #30 cap Loperamide HCl [Imodium] 2 mg PO ASDIR PRN #30 cap PRN Reason: Diarrhea/Loose Stools Home Medications: Medication Instructions Recorded Confirmed Type Allopurinol [Zyloprim] 300 mg PO PRN PRN 11/25/13 12/25/20 History Potassium Chloride [Klor-Con] 20 meq PO DAILY 11/25/13 12/25/20 History metFORMIN HCl 500 mg PO BID 11/25/13 12/25/20 History Levothyroxine Sodium [Tirosint] 50 mcg PO HS 02/18/16 12/25/20 History Evolocumab [Repatha Syringe] 140 mg SQ ASDIR 12/23/16 12/25/20 History Nintedanib Esylate [Ofev] 1 tab PO BID 12/07/18 12/25/20 History predniSONE 10 mg PO DAILY 12/07/18 12/25/20 History Furosemide [Lasix] 40 mg PO DAILY 03/23/19 12/25/20 History [place]-3 Fatty Acids/Fish Oil 1 each PO BID 03/26/19 12/25/20 History [[place] 3 Fish Oil Softgel] Fluconazole 150 mg PO ASDIR 07/06/19 12/25/20 History Aspirin Chewable [Aspirin Chewable 81 mg PO DAILY 12/25/20 12/25/20 History Tablet] Dapagliflozin Propanediol [Farxiga] 10 mg PO QAM 12/25/20 12/25/20 History metFORMIN [Glucophage] 500 mg PO BID-WM 12/25/20 12/25/20 History Captopril 12.5 mg PO BID #60 tablet 12/30/20 Rx Loperamide HCl [Imodium] 2 mg PO ASDIR PRN #30 cap 12/30/20 Rx Magnesium Oxide [Magnesium] 400 mg PO DAILY PRN #0 12/30/20 12/25/20 Rx Saccharomyces boulardii [Florastor] 250 mg PO DAILY #30 cap 12/30/20 Rx Allergies: Iodine contrast Allergy (Uncoded 02/11/20 03:59) Activity:: Activity as Tolerated Nourishment:: Diabetic Diet, Heart Healthy Diet Referrals: Peggy Mendiola MD [Active] - 3-4 Weeks (Please call the office and schedule a follow up appointment) Gem Barr MD [Active] - 7 Days (Please call the office and schedule a follow up appointment ) Tati Moulton MD [Active] - 2-3 Weeks (Please call the office and schedule a follow up appointment) [facility] [Lab Providers] - Radha Shea MD [Primary Care Provider] - 3 Days (Please call the office and schedule a follow up appointment) Disposition: HOME HEALTH Quality CORE MEASURES:: N/A
[2020-12-30 15:24] VITALS: BP 126/89
== END 2020-12-30 16:06 | disposition home health service (06) | DRG 196 ==
LOC: ERS 22:22 → ERHOLD 12-25 01:59 → 2SW 12-25 15:11 → 2NO 12-26 16:48
PROVIDERS: ADMIT Student in an Organized Health Care Education/Training Program; ATTEND Internal Medicine
PROC: 069Y3ZZ Drainage of Lower Vein, Percutaneous Approach (ICD-10-PCS; principal; 2020-12-26)
DX: J84.112 Idiopathic pulmonary fibrosis (principal); I50.31 Acute diastolic (congestive) heart failure; E87.1 Hypo-osmolality and hyponatremia; N17.9 Acute kidney failure, unspecified; I13.0 Hypertensive heart and chronic kidney disease with heart failure and stage 1 through stage 4 chronic kidney disease, or unspecified chronic kidney disease; E87.2 Acidosis; I48.20 Chronic atrial fibrillation, unspecified; I47.2 Ventricular tachycardia; J96.11 Chronic respiratory failure with hypoxia; K52.1 Toxic gastroenteritis and colitis; R18.8 Other ascites; I31.3 Pericardial effusion (noninflammatory); R55 Syncope and collapse; Z20.822 Contact with and (suspected) exposure to COVID-19; E11.9 Type 2 diabetes mellitus without complications; E87.5 Hyperkalemia; I25.10 Atherosclerotic heart disease of native coronary artery without angina pectoris; D69.6 Thrombocytopenia, unspecified; E78.5 Hyperlipidemia, unspecified; E86.9 Volume depletion, unspecified; D75.1 Secondary polycythemia; R94.5 Abnormal results of liver function studies; N18.2 Chronic kidney disease, stage 2 (mild); T50.2X5A Adverse effect of carbonic-anhydrase inhibitors, benzothiadiazides and other diuretics, initial encounter; I27.29 Other secondary pulmonary hypertension; Z91.041 Radiographic dye allergy status
CPT/HCPCS: 36415; 36416; 71045; 71046; 72131; 80048; 80053; 80074; 81001; 82553; 82570; 82607; 82668; 82746; 83615; 83630; 83735; 83880; 84300; 84443; 84484; 84540; 84550; 85025; 86140; 87045; 87046; 87081; 87324; 87427; 87449; 87635; 93005; 93306; 93975; 96374; 99195; J1100; J1815; J1885; J7512; U0002; U0003; U0005